=== PATIENT | female | born 1960 | race Caucasian/White ===

== ENCOUNTER 2017-08-25 14:22 | Inpatient (IN) | payer MEDICARE, OTHER ==
[~2017-08-25] VITALS: Ht 175.3 cm; Wt 102.7 kg
[~2017-08-25 14:22] MED LIST: ACEBUTCAFT PO; ALBU90I INH; ALBU90OI INH; ALBU90OI61 INH; AMIT25 PO; ASPI325 PO; Advair Hfa 230-12 GM INH; BENADRYL25 MG; BENZ100A PO; CYCL10 PO; Cyclobenzaprine5 MG PO; DIPH50 PO; FLUSAL1005 INH; FLUSAL2505 INH; Flonase 0.05% N16 GM; GLYCAS PR; HYDACE25S PR; HYDCHL12.5 PO; HYDROCHLOROTHIAZIDE; Hydrochlorothia25 MG PO; LAVAP17G PO; LIDO5TP TOP; LIDO700A20 TOP; LISHYD1012 PO; LISHYD2025 PO; LISI20 PO; LORA.5 PO; Lyrica50 MG PO; MELA3 PO; METPRE4DP PO; Magnesium 300300 MG; Maxalt Mlt10 MG PO; Maxalt10 MG; Maxalt5 MG; Naprosyn500 MG PO; ONDA4ODT PO; OXECTA5 MG PO; Omeprazole20 M1 PO; POTASSIUM GLUC500 MG; PRED20 PO; PROM12.5S PR; PROM25 PO; PSEU120ER PO; Percocet 5-3251 EACH PO; Potaba500 MG; Prednisone20 MG PO; Prilosec20 MG PO; Robaxin500 MG PO; Roxicodone5 MG PO; SUCR1 PO; SULTRIDS PO; TEA TREE TOP; TRAM50 PO; Ultram50 MG PO; Valium5 MG PO; Ventolin Soln3 ML INH; ZESTORETIC 20-121 EA PO; ZESTORETIC 20-251 EA PO; Zithromax250 MG PO; Zofran Odt4 MG SL; [UNRECOGNIZED DRUG - OTHER]; [UNRECOGNIZED DRUG - OTHER]; [UNRECOGNIZED DRUG - OTHER] PO
[2017-08-25 15:10] LABS: BASOPHILS ABSOLUTE AUTO 0.02 K/mm3 (0.00-0.23); BASOPHILS PERCENT AUTO 0 % (0-2); EOSINOPHILS ABSOLUTE AUTO 0.04 K/mm3 (0.00-0.68); EOSINOPHILS PERCENT AUTO 0 % (0-6); Hematocrit 38.2 % (33.0-51.0); Hemoglobin 12.7 g/dL (11.5-16.0); IMMATURE GRAN ABSOLUTE AUTO 0.05 K/mm3 (0.00-0.10); IMMATURE GRAN PERCENT AUTO 0 % (0-1); LYMPHOCYTES ABSOLUTE AUTO 0.52 K/mm3 (0.84-5.20); LYMPHOCYTES PERCENT AUTO 3 % (21-46); MONOCYTES ABSOLUTE AUTO 1.02 K/mm3 (0.16-1.47); MONOCYTES PERCENT AUTO 6 % (4-13); Mean Corpuscular HGB 28.3 pg (26.0-34.0); Mean Corpuscular HGB Conc 33.2 g/dL (31.5-36.5); Mean Corpuscular Volume 85 fL (80-100); NEUTROPHILS ABSOLUTE AUTO 16.77 K/mm3 (1.96-9.15); NEUTROPHILS PERCENT AUTO 91 % (41-73); Platelet Count 260 K/mm3 (150-400); RDW Coefficient Variation 12.7 % (11.7-14.2); RDW Standard Deviation 39.6 fL (35.1-46.3); Red Blood Cell Count 4.49 M/mm3 (3.80-5.20); White Blood Cell Count 18.42 K/mm3 (4.00-11.30)
[2017-08-25 15:29] LABS: Albumin, Blood 3.6 g/dL (3.4-5.0); Albumin/Globulin Ratio 0.9 (0.8-1.8); Bilirubin, Total 0.7 mg/dL (0.1-1.0); Bun/Creatinine Ratio 24.2 (12.0-20.0); Calcium, Blood 9.3 mg/dL (8.5-10.1); Creatinine, Blood 1.2 mg/dL (0.40-1.00); Globulin, Blood 4.1 g/dL (2.2-4.0); Potassium, Blood 3.4 mmol/L (3.5-5.5); Total Protein, Blood 7.7 g/dL (6.4-8.2)
[2017-08-25 15:33] LABS: Source, Urine Clean Catch
[2017-08-25 15:36] LABS: Appearance, Urine Clear (Clear); Bilirubin, Urine Neg (Neg); Blood, Urine Neg (Neg); Color, Urine Yellow (P-Yellow); Glucose Qualitative, Urine Neg (Neg); Ketones, Urine Neg (Neg); Leukocyte Esterase, Urine 1+ (Neg); Nitrite, Urine Neg (Neg); Protein, Urine Neg (Neg); Urobilinogen, Urine NORM (Normal)
[2017-08-25 15:50] LABS: Influenza A Negative (NEGATIVE); Influenza B Negative (NEGATIVE)
[2017-08-25 15:57] LABS: Bacteria Few /hpf; Red Blood Cells, Urine 0-2 /hpf (0-2); Squamous Epithelial Cells Few /hpf (Few)
[2017-08-25] MEDS ORDERED: Flonase 0.05% N16 GM (18:16)
[2017-08-25] MEDS ORDERED: QUDEXY XR100 MG PO (18:19)
[2017-08-25] MEDS ORDERED: OXYC5 PO (18:22)
[2017-08-26 05:35] LABS: BASOPHILS ABSOLUTE AUTO 0.03 K/mm3 (0.00-0.23); BASOPHILS PERCENT AUTO 0 % (0-2); EOSINOPHILS PERCENT AUTO 2 % (0-6); Hematocrit 31.6 % (33.0-51.0); Hemoglobin 10.1 g/dL (11.5-16.0); IMMATURE GRAN ABSOLUTE AUTO 0.03 K/mm3 (0.00-0.10); IMMATURE GRAN PERCENT AUTO 0 % (0-1); LYMPHOCYTES ABSOLUTE AUTO 1.29 K/mm3 (0.84-5.20); LYMPHOCYTES PERCENT AUTO 10 % (21-46); MONOCYTES ABSOLUTE AUTO 0.73 K/mm3 (0.16-1.47); MONOCYTES PERCENT AUTO 6 % (4-13); Mean Corpuscular HGB 27.6 pg (26.0-34.0); Mean Corpuscular Volume 86 fL (80-100); Mean Platelet Volume 8.7 fL (9.1-12.4); NEUTROPHILS ABSOLUTE AUTO 10.52 K/mm3 (1.96-9.15); NEUTROPHILS PERCENT AUTO 82 % (41-73); Platelet Count 195 K/mm3 (150-400); RDW Standard Deviation 41.5 fL (35.1-46.3); Red Blood Cell Count 3.66 M/mm3 (3.80-5.20)
[2017-08-26 06:28] LABS: Bun/Creatinine Ratio 26.8 (12.0-20.0); Calcium, Blood 8.5 mg/dL (8.5-10.1); Creatinine, Blood 1.12 mg/dL (0.40-1.00); Potassium, Blood 3.2 mmol/L (3.5-5.5)
[2017-08-26 14:40] LABS: Vancomycin, Trough 5.3 ug/mL (5.0-10.0)
[2017-08-27 05:07] LABS: BASOPHILS ABSOLUTE AUTO 0.02 K/mm3 (0.00-0.23); BASOPHILS PERCENT AUTO 0 % (0-2); EOSINOPHILS ABSOLUTE AUTO 0.32 K/mm3 (0.00-0.68); EOSINOPHILS PERCENT AUTO 5 % (0-6); Hematocrit 29.7 % (33.0-51.0); Hemoglobin 9.7 g/dL (11.5-16.0); IMMATURE GRAN ABSOLUTE AUTO 0.02 K/mm3 (0.00-0.10); IMMATURE GRAN PERCENT AUTO 0 % (0-1); LYMPHOCYTES ABSOLUTE AUTO 0.96 K/mm3 (0.84-5.20); LYMPHOCYTES PERCENT AUTO 14 % (21-46); MONOCYTES ABSOLUTE AUTO 0.57 K/mm3 (0.16-1.47); MONOCYTES PERCENT AUTO 8 % (4-13); Mean Corpuscular HGB 27.5 pg (26.0-34.0); Mean Corpuscular HGB Conc 32.7 g/dL (31.5-36.5); Mean Corpuscular Volume 84 fL (80-100); Mean Platelet Volume 8.7 fL (9.1-12.4); NEUTROPHILS ABSOLUTE AUTO 5.17 K/mm3 (1.96-9.15); NEUTROPHILS PERCENT AUTO 73 % (41-73); Platelet Count 197 K/mm3 (150-400); RDW Coefficient Variation 12.8 % (11.7-14.2); RDW Standard Deviation 39.1 fL (35.1-46.3); Red Blood Cell Count 3.53 M/mm3 (3.80-5.20); White Blood Cell Count 7.06 K/mm3 (4.00-11.30)
[2017-08-27 05:25] LABS: Anion Gap 8 mmol/L (6-16); Blood Urea Nitrogen 14 mg/dL (8-24); Bun/Creatinine Ratio 17.8 (12.0-20.0); CO2, Blood 25 mmol/L (21-32); Calcium, Blood 8.2 mg/dL (8.5-10.1); Chloride, Blood 104 mmol/L (98-108); Creatinine, Blood 0.79 mg/dL (0.40-1.00); Glomerular Filtration Rate >60 (60-); Glucose, Blood 117 mg/dL (70-99); Potassium, Blood 3.7 mmol/L (3.5-5.5); Sodium, Blood 137 mmol/L (136-145)
[2017-08-28] MEDS ORDERED: DOCU100 PO (09:47)
[2017-08-28] MEDS ORDERED: SACC250C PO (09:49)
[2017-08-28] MEDS ORDERED: CEPH500 PO (09:51)
[2017-08-29] MEDS ORDERED: Prednisone50 MG PO (01:23)
[2017-08-29] MEDS ORDERED: EPIPEN 2-P0.3 MG/0.3 IM (01:23)
[2017-08-29] MEDS ORDERED: BENADRYL25 MG PO (01:23)
[2017-08-29] MEDS ORDERED: Pepcid20 MG PO (01:23)
== END 2017-08-28 13:30 | disposition home or self-care (01) | DRG 862 ==
LOC: ER 14:22 → MEDS 16:30 → ENPENDDIS 08-28 09:10 → MEDS 08-28 13:30
PROVIDERS: Emergency Medicine; Internal Medicine
DX: T81.4XXA Infection following a procedure, initial encounter (principal); A41.9 Sepsis, unspecified organism; J96.01 Acute respiratory failure with hypoxia; L03.116 Cellulitis of left lower limb; J98.11 Atelectasis; K27.9 Peptic ulcer, site unspecified, unspecified as acute or chronic, without hemorrhage or perforation; M19.90 Unspecified osteoarthritis, unspecified site; J45.909 Unspecified asthma, uncomplicated; I12.9 Hypertensive chronic kidney disease with stage 1 through stage 4 chronic kidney disease, or unspecified chronic kidney disease; N18.3 Chronic kidney disease, stage 3 (moderate); K21.9 Gastro-esophageal reflux disease without esophagitis; Z87.891 Personal history of nicotine dependence; Z79.899 Other long term (current) drug therapy; Z88.8 Allergy status to other drugs, medicaments and biological substances; Z91.040 Latex allergy status; Z91.010 Allergy to peanuts
CPT/HCPCS: 36415; 71020; 80048; 80053; 80202; 81001; 83605; 83735; 85025; 87040; 87081; 87086; 87804; 94640; 94760; 96365; 96367; 99285; J0690; J1650; J2405; J3370; J7030; J7050

== ENCOUNTER → 2017-11-06 | Outpatient (CLI) | payer MEDICARE, OTHER ==
[~2017-11-06] MED LIST changes: +BENADRYL25 MG PO; +BUDE10.22 INH; +BUDE6HFA INH; +CEPH500 PO; +DOCU100 PO; +EPIPEN 2-P0.3 MG/0.3 IM; +LIDOCAINE5 GM TOP; +Maxalt10 MG PO; +OXYC5 PO; +Pepcid20 MG PO; +Prednisone50 MG PO; +QUDEXY XR100 MG PO; +SACC250C PO; +Ventolin/Prove6.7 GM INH; +Voltaren100 GM TOP
[2017-11-08 13:33] LABS: HPV Genotype 16 Not Detected (NOTDET); HPV Genotype 18 Not Detected (NOTDET)
[2017-11-26 08:13] LABS: HPV High Risk Other Not Detected (NOTDET)
== END ==
LOC: LAB 11:29
PROVIDERS: Nurse Practitioner Family
DX: Z12.4 Encounter for screening for malignant neoplasm of cervix (principal)
CPT/HCPCS: 87624; G0145

== ENCOUNTER 2018-02-14 17:12 | Emergency (ER) | payer MEDICARE, OTHER ==
[~2018-02-14] VITALS: Ht 175.3 cm; Wt 83.9 kg
[~2018-02-14 17:12] MED LIST changes: -BUDE10.22 INH; -BUDE6HFA INH; -LIDOCAINE5 GM TOP; -Maxalt10 MG PO; -Ventolin/Prove6.7 GM INH; -Voltaren100 GM TOP
[2018-02-14] MEDS ORDERED: BUDE6HFA INH (17:25)
[2018-02-14] MEDS ORDERED: Voltaren100 GM TOP (18:27)
== END 2018-02-14 18:38 | disposition home or self-care (01) ==
LOC: ER 17:12
DX: S83.91XA Sprain of unspecified site of right knee, initial encounter (principal); M17.11 Unilateral primary osteoarthritis, right knee; I10 Essential (primary) hypertension; J45.909 Unspecified asthma, uncomplicated; Z88.6 Allergy status to analgesic agent; Z88.5 Allergy status to narcotic agent; Z91.040 Latex allergy status; Z91.010 Allergy to peanuts; Z79.899 Other long term (current) drug therapy; Z87.891 Personal history of nicotine dependence; W19.XXXA Unspecified fall, initial encounter
CPT/HCPCS: 73564; 99283

== ENCOUNTER 2018-02-21 16:55 | Emergency (ER) | payer OTHER, MEDICARE ==
[~2018-02-21] VITALS: Ht 175.3 cm; Wt 81.7 kg
[~2018-02-21 16:55] MED LIST changes: +BUDE6HFA INH; +Voltaren100 GM TOP
[2018-02-21] MEDS ORDERED: Maxalt10 MG PO (18:34)
[2018-02-21] MEDS ORDERED: ZESTORETIC 20-251 EA PO (18:45)
[2018-02-21] MEDS ORDERED: Omeprazole20 M1 PO (18:45)
[2018-02-21] MEDS ORDERED: BUDE10.22 INH (18:46)
[2018-02-21] MEDS ORDERED: Ventolin/Prove6.7 GM INH (18:46)
[2018-02-21] MEDS ORDERED: OXYC5 PO (18:46)
[2018-02-21] MEDS ORDERED: LIDOCAINE5 GM TOP (19:29)
== END 2018-02-21 19:50 | disposition home or self-care (01) ==
LOC: ER 16:55
DX: M25.561 Pain in right knee (principal); I10 Essential (primary) hypertension; J45.909 Unspecified asthma, uncomplicated; Z88.6 Allergy status to analgesic agent; Z88.5 Allergy status to narcotic agent; Z91.040 Latex allergy status; Z91.010 Allergy to peanuts; Z79.899 Other long term (current) drug therapy; Z87.891 Personal history of nicotine dependence
CPT/HCPCS: 96372; 99283; J1885

== ENCOUNTER 2020-08-05 20:26 | Inpatient (IN) | payer MEDICARE ==
[~2020-08-05] VITALS: Ht 175.3 cm; Wt 98.2 kg
[~2020-08-05 20:26] MED LIST changes: +BUDE10.22 INH; +LIDOCAINE5 GM TOP; +Maxalt10 MG PO; +Ventolin/Prove6.7 GM INH
[2020-08-05 21:09] LABS: BASOPHILS ABSOLUTE AUTO 0.03 K/mm3 (0.00-0.23); BASOPHILS PERCENT AUTO 0 % (0-2); EOSINOPHILS ABSOLUTE AUTO 0.02 K/mm3 (0.00-0.68); EOSINOPHILS PERCENT AUTO 0 % (0-6); Hematocrit 33.7 % (33.0-51.0); Hemoglobin 10.9 g/dL (11.5-16.0); IMMATURE GRAN ABSOLUTE AUTO 0.13 K/mm3 (0.00-0.10); IMMATURE GRAN PERCENT AUTO 1 % (0-1); LYMPHOCYTES ABSOLUTE AUTO 0.67 K/mm3 (0.84-5.20); LYMPHOCYTES PERCENT AUTO 4 % (21-46); MONOCYTES ABSOLUTE AUTO 0.87 K/mm3 (0.16-1.47); MONOCYTES PERCENT AUTO 5 % (4-13); Mean Corpuscular HGB 27.9 pg (26.0-34.0); Mean Corpuscular HGB Conc 32.3 g/dL (31.5-36.5); Mean Corpuscular Volume 86 fL (80-100); Mean Platelet Volume 8.7 fL (9.1-12.4); NEUTROPHILS ABSOLUTE AUTO 14.42 K/mm3 (1.96-9.15); NEUTROPHILS PERCENT AUTO 89 % (41-73); Platelet Count 227 K/mm3 (150-400); RDW Coefficient Variation 12.4 % (11.7-14.2); Red Blood Cell Count 3.91 M/mm3 (3.80-5.20); White Blood Cell Count 16.14 K/mm3 (4.00-11.30)
[2020-08-05 21:27] LABS: Alanine Aminotransfer (ALT/SGP 31 U/L (12-78); Albumin/Globulin Ratio 0.7 (0.8-1.8); Alk Phos 155 U/L (50-136); Anion Gap 7 mmol/L (6-16); Aspartate Aminotrans (AST/SGOT 36 U/L (12-37); Bilirubin, Total 0.4 mg/dL (0.1-1.0); Blood Urea Nitrogen 39 mg/dL (8-24); Bun/Creatinine Ratio 19.1 (12.0-20.0); CO2, Blood 26 mmol/L (21-32); Calcium, Blood 9.1 mg/dL (8.5-10.1); Chloride, Blood 100 mmol/L (98-108); Creatinine, Blood 2.04 mg/dL (0.40-1.00); Globulin, Blood 4.3 g/dL (2.2-4.0); Glomerular Filtration Rate 26 (60-); Glucose, Blood 154 mg/dL (70-99); Potassium, Blood 3.4 mmol/L (3.5-5.5); Sodium, Blood 133 mmol/L (136-145); Total Protein, Blood 7.3 g/dL (6.4-8.2)
[2020-08-06 01:31] LABS: Influenza A, PCR Negative (NEGATIVE); Influenza B, PCR Negative (NEGATIVE); Resp Syncytial Virus, PCR Negative (NEGATIVE); SARS-Cov-2 (COVID-19) PCR, MMC Negative (NEGATIVE)
[2020-08-06 01:33] LABS: Troponin I <0.015 ng/mL (0.000-0.040)
[2020-08-06 01:47] LABS: Source, Urine Voided
[2020-08-06 01:49] LABS: Bilirubin, Urine Neg (Neg); Blood, Urine 5+ (Neg); Glucose Qualitative, Urine Neg (Neg); Ketones, Urine Neg (Neg); Leukocyte Esterase, Urine 2+ (Neg); Nitrite, Urine Neg (Neg); Protein, Urine 2+ (Neg); Specific Gravity, Urine 1.015 (1.003-1.022); Urobilinogen, Urine NORM (Normal)
[2020-08-06 01:52] LABS: Appearance, Urine Hazy (Clear); Color, Urine Yellow (P-Yellow)
[2020-08-06 02:01] LABS: Amorphous Mod (0-Heavy); Bacteria Mod /hpf; Granular Casts 0-2 /lpf (0); Red Blood Cells, Urine TNTC /hpf (0-2); Squamous Epithelial Cells Few /hpf (Few)
[2020-08-06] MEDS ORDERED: Lisinopril-Hct1 EAC4 PO ×2 (05:40)
[2020-08-06] MEDS ORDERED: TOPI15C ×2 (05:45)
[2020-08-06 06:56] LABS: Source, Urine Catheter
[2020-08-06 07:05] LABS: Appearance, Urine Hazy (Clear); Bilirubin, Urine Neg (Neg); Blood, Urine 5+ (Neg); Color, Urine Yellow (P-Yellow); Glucose Qualitative, Urine Neg (Neg); Ketones, Urine Neg (Neg); Leukocyte Esterase, Urine Neg (Neg); Nitrite, Urine Neg (Neg); Protein, Urine 1+ (Neg); Urobilinogen, Urine NORM (Normal)
[2020-08-06 07:22] LABS: Red Blood Cells, Urine 0-2 /hpf (0-2); White Blood Cells, Urine 0-2 /hpf (0-5)
[2020-08-06 07:23] LABS: Amorphous Heavy (0-Heavy); Bacteria Rare /hpf; Squamous Epithelial Cells Few /hpf (Few)
[2020-08-06 08:58] LABS: BASOPHILS ABSOLUTE AUTO 0.04 K/mm3 (0.00-0.23); BASOPHILS PERCENT AUTO 0 % (0-2); EOSINOPHILS ABSOLUTE AUTO 0.17 K/mm3 (0.00-0.68); EOSINOPHILS PERCENT AUTO 2 % (0-6); Hematocrit 29.1 % (33.0-51.0); Hemoglobin 9.5 g/dL (11.5-16.0); IMMATURE GRAN ABSOLUTE AUTO 0.05 K/mm3 (0.00-0.10); IMMATURE GRAN PERCENT AUTO 1 % (0-1); LYMPHOCYTES ABSOLUTE AUTO 1.13 K/mm3 (0.84-5.20); LYMPHOCYTES PERCENT AUTO 11 % (21-46); MONOCYTES ABSOLUTE AUTO 0.77 K/mm3 (0.16-1.47); MONOCYTES PERCENT AUTO 7 % (4-13); Mean Corpuscular HGB 28.4 pg (26.0-34.0); Mean Corpuscular HGB Conc 32.6 g/dL (31.5-36.5); Mean Corpuscular Volume 87 fL (80-100); Mean Platelet Volume 8.8 fL (9.1-12.4); NEUTROPHILS ABSOLUTE AUTO 8.59 K/mm3 (1.96-9.15); NEUTROPHILS PERCENT AUTO 80 % (41-73); Platelet Count 187 K/mm3 (150-400); RDW Coefficient Variation 12.5 % (11.7-14.2); RDW Standard Deviation 39.9 fL (35.1-46.3); Red Blood Cell Count 3.35 M/mm3 (3.80-5.20); White Blood Cell Count 10.75 K/mm3 (4.00-11.30)
[2020-08-06 09:19] LABS: Albumin, Blood 2.7 g/dL (3.4-5.0); Albumin/Globulin Ratio 0.8 (0.8-1.8); Bilirubin, Total 0.4 mg/dL (0.1-1.0); Bun/Creatinine Ratio 20.9 (12.0-20.0); Calcium, Blood 8.7 mg/dL (8.5-10.1); Creatinine, Blood 1.72 mg/dL (0.40-1.00); Globulin, Blood 3.6 g/dL (2.2-4.0); Potassium, Blood 3.3 mmol/L (3.5-5.5); Total Protein, Blood 6.3 g/dL (6.4-8.2)
--- NOTE | 2020-08-06 13:37 | NUR ---
DR OLEARY: DISCUSSED PT STATUS AND DR OLEARY DECIDED PT NEEDED TO BE MEDICAL FLOOR STATUS RATHER THAN PCU. WILL TRANSFER WHEN ROOM AVAILABLE.
--- NOTE | 2020-08-06 16:19 | NUR ---
Patient arrived to room 230. 50mg IV Fentayl given to patient for 9/10 pain. Surgical dressing replaced to lower back. Patient oriented to room. RA. Patient sitting up in bed watching TV. Ice water and call light within patient reach.
[2020-08-07 04:53] LABS: BASOPHILS ABSOLUTE AUTO 0.05 K/mm3 (0.00-0.23); BASOPHILS PERCENT AUTO 1 % (0-2); EOSINOPHILS ABSOLUTE AUTO 0.17 K/mm3 (0.00-0.68); EOSINOPHILS PERCENT AUTO 3 % (0-6); Hematocrit 27.8 % (33.0-51.0); Hemoglobin 8.9 g/dL (11.5-16.0); IMMATURE GRAN ABSOLUTE AUTO 0.03 K/mm3 (0.00-0.10); IMMATURE GRAN PERCENT AUTO 1 % (0-1); LYMPHOCYTES ABSOLUTE AUTO 0.87 K/mm3 (0.84-5.20); LYMPHOCYTES PERCENT AUTO 14 % (21-46); MONOCYTES ABSOLUTE AUTO 0.61 K/mm3 (0.16-1.47); MONOCYTES PERCENT AUTO 10 % (4-13); Mean Corpuscular HGB 27.6 pg (26.0-34.0); Mean Corpuscular Volume 86 fL (80-100); Mean Platelet Volume 8.7 fL (9.1-12.4); NEUTROPHILS PERCENT AUTO 72 % (41-73); Platelet Count 196 K/mm3 (150-400); RDW Coefficient Variation 12.5 % (11.7-14.2); RDW Standard Deviation 39.8 fL (35.1-46.3); Red Blood Cell Count 3.23 M/mm3 (3.80-5.20); White Blood Cell Count 6.23 K/mm3 (4.00-11.30)
[2020-08-07 05:11] LABS: Albumin, Blood 2.3 g/dL (3.4-5.0); Anion Gap 7 mmol/L (6-16); Blood Urea Nitrogen 23 mg/dL (8-24); Bun/Creatinine Ratio 23.8 (12.0-20.0); CO2, Blood 24 mmol/L (21-32); Calcium, Blood 8.4 mg/dL (8.5-10.1); Chloride, Blood 109 mmol/L (98-108); Creatinine, Blood 0.97 mg/dL (0.40-1.00); Glomerular Filtration Rate >60 (60-); Glucose, Blood 96 mg/dL (70-99); Phosphorus, Blood 3.1 mg/dL (2.5-4.9); Potassium, Blood 3.7 mmol/L (3.5-5.5); Sodium, Blood 140 mmol/L (136-145)
--- NOTE | 2020-08-07 06:26 | NUR ---
SHIFT SUMMARY: GLADYS IS A&OX4. VSS. SHE DEMONSTRATED SNORING RESPIRATIONS WITH OCCASIONAL OBSTRUCTIONS AND A SPOT CHECK REVEALED O2 SATURATION OF 83% ORA. 2 L VIA NC WAS APPLIED AND HER SATS MAINTAINED AT 92% OR ABOVE. SHE STATES THAT SHE FREQUENTLY SNORES DURING SLEEP AND DENIED HAVING HAD A SLEEP STUDY. SHE WAS ENCOURAGED TO FOLLOWUP WITH HER DOCTOR CONCERNING THIS ISSUE. WHILE AWAKE, HER SATURATIONS ARE MAINTAINING AT OR ABOVE 92% ORA. SHE IS TOLERATING PO INTAKE WELL. SHE USES HER CALL LIGHT APPROPRIATELY. SHE IS A STANDBY ASSIST. SHE IS LYING IN BED WITH HER CALL LIGHT IN REACH. WILL REPORT TO DAY SHIFT RN.
[2020-08-07] MEDS ORDERED: Athenol325 MG PO ×2 (14:00)
[2020-08-07] MEDS ORDERED: AZIT500 PO ×2 (14:01)
[2020-08-07] MEDS ORDERED: DOCU100 PO ×2 (14:01)
[2020-08-07] MEDS ORDERED: ROXICODONE5 MG PO ×2 (14:02)
[2020-08-07] MEDS ORDERED: SENN187 PO ×2 (14:02)
[2020-08-08] MEDS ORDERED: CEFPODOXIME PR100 MG PO (00:06)
== END 2020-08-07 16:57 | disposition home or self-care (01) | DRG 871 ==
LOC: ER 20:26 → ERHOLD 20:27 → ICUE 20:27 → SURS 08-06 15:45
PROVIDERS: Emergency Medicine; Internal Medicine; Physician Assistant; ADMIT Internal Medicine
DX: A41.9 Sepsis, unspecified organism (principal); J18.9 Pneumonia, unspecified organism; N17.9 Acute kidney failure, unspecified; E87.1 Hypo-osmolality and hyponatremia; E86.0 Dehydration; N18.30 Chronic kidney disease, stage 3 unspecified; E87.6 Hypokalemia; K59.00 Constipation, unspecified; Z20.828 Contact with and (suspected) exposure to other viral communicable diseases; R09.02 Hypoxemia; R31.9 Hematuria, unspecified
CPT/HCPCS: 0241U; 36415; 51702; 71045; 74176; 80053; 80069; 81001; 83605; 83690; 83880; 84484; 85025; 87040; 87086; 93005; 93010; 94640; 94760; 96365; 96367; 96372; 96375; 96376; 99285-25; C9113; G0378; J0696; J1200; J1650; J2405; J2765; J3010; J3370; J3480; J7030

== ENCOUNTER 2020-08-07 22:55 | Emergency (ER) | payer MEDICARE ==
[~2020-08-07] VITALS: Ht 175.3 cm; Wt 93.0 kg
[~2020-08-07 22:55] MED LIST changes: +AZIT500 PO; +Athenol325 MG PO; +Lisinopril-Hct1 EAC4 PO; +ROXICODONE5 MG PO; +SENN187 PO; +TOPI15C
[2020-08-07 23:33] LABS: Source, Urine Catheter
[2020-08-07 23:47] LABS: Bilirubin, Urine Neg (Neg); Blood, Urine 5+ (Neg); Glucose Qualitative, Urine Neg (Neg); Ketones, Urine Neg (Neg); Leukocyte Esterase, Urine 2+ (Neg); Nitrite, Urine Neg (Neg); Protein, Urine 2+ (Neg); Urobilinogen, Urine NORM (Normal)
[2020-08-07 23:56] LABS: Appearance, Urine Hazy (Clear); Color, Urine Yellow (P-Yellow)
[2020-08-07 23:57] LABS: Bacteria Few /hpf; Red Blood Cells, Urine TNTC /hpf (0-2); Squamous Epithelial Cells Not Seen /hpf (Few)
[2020-08-08] MEDS ORDERED: CEFPODOXIME PR100 MG PO (00:06)
== END 2020-08-08 00:18 | disposition home or self-care (01) ==
LOC: ER 22:55
PROVIDERS: Emergency Medicine
DX: T83.511A Infection and inflammatory reaction due to indwelling urethral catheter, initial encounter (principal); I10 Essential (primary) hypertension; J45.909 Unspecified asthma, uncomplicated; Z79.51 Long term (current) use of inhaled steroids; Z88.6 Allergy status to analgesic agent; Z88.2 Allergy status to sulfonamides; Z91.040 Latex allergy status; Z91.010 Allergy to peanuts; Z79.899 Other long term (current) drug therapy
CPT/HCPCS: 81001; 87086; 99283; A9270-GY

== ENCOUNTER → 2020-08-11 | Outpatient (CLI) | payer MEDICARE, OTHER ==
[~2020-08-11] MED LIST changes: +CEFPODOXIME PR100 MG PO
[2020-08-11 19:15] LABS: BASOPHILS ABSOLUTE AUTO 0.06 K/mm3 (0.00-0.23); BASOPHILS PERCENT AUTO 1 % (0-2); EOSINOPHILS ABSOLUTE AUTO 0.24 K/mm3 (0.00-0.68); EOSINOPHILS PERCENT AUTO 3 % (0-6); Hematocrit 29.2 % (33.0-51.0); Hemoglobin 9.5 g/dL (11.5-16.0); IMMATURE GRAN ABSOLUTE AUTO 0.12 K/mm3 (0.00-0.10); IMMATURE GRAN PERCENT AUTO 2 % (0-1); LYMPHOCYTES PERCENT AUTO 15 % (21-46); MONOCYTES ABSOLUTE AUTO 0.78 K/mm3 (0.16-1.47); MONOCYTES PERCENT AUTO 11 % (4-13); Mean Corpuscular HGB 27.5 pg (26.0-34.0); Mean Corpuscular HGB Conc 32.5 g/dL (31.5-36.5); Mean Corpuscular Volume 85 fL (80-100); NEUTROPHILS ABSOLUTE AUTO 5.06 K/mm3 (1.96-9.15); NEUTROPHILS PERCENT AUTO 69 % (41-73); Platelet Count 337 K/mm3 (150-400); RDW Coefficient Variation 12.2 % (11.7-14.2); RDW Standard Deviation 37.8 fL (35.1-46.3); Red Blood Cell Count 3.45 M/mm3 (3.80-5.20); White Blood Cell Count 7.36 K/mm3 (4.00-11.30)
[2020-08-11 19:35] LABS: Alanine Aminotransfer (ALT/SGP 39 U/L (12-78); Albumin/Globulin Ratio 0.7 (0.8-1.8); Alk Phos 107 U/L (50-136); Anion Gap 8 mmol/L (6-16); Aspartate Aminotrans (AST/SGOT 33 U/L (12-37); Bilirubin, Total 0.2 mg/dL (0.1-1.0); Blood Urea Nitrogen 21 mg/dL (8-24); Bun/Creatinine Ratio 21.4 (12.0-20.0); CO2, Blood 24 mmol/L (21-32); Calcium, Blood 9.5 mg/dL (8.5-10.1); Chloride, Blood 103 mmol/L (98-108); Creatinine, Blood 0.98 mg/dL (0.40-1.00); Globulin, Blood 4.3 g/dL (2.2-4.0); Glomerular Filtration Rate >60 (60-); Glucose, Blood 100 mg/dL (70-99); Potassium, Blood 3.8 mmol/L (3.5-5.5); Sodium, Blood 135 mmol/L (136-145); Total Protein, Blood 7.3 g/dL (6.4-8.2)
== END | disposition home or self-care (01) ==
LOC: LAB 17:30
PROVIDERS: Nurse Practitioner Family
DX: R60.0 Localized edema (principal)
CPT/HCPCS: 80053; 85025; 87086

== ENCOUNTER 2020-08-14 14:18 | Emergency (ER) | payer MEDICARE ==
[~2020-08-14] VITALS: Ht 175.3 cm; Wt 93.0 kg
[2020-08-14 14:52] LABS: BASOPHILS ABSOLUTE AUTO 0.07 K/mm3 (0.00-0.23); BASOPHILS PERCENT AUTO 1 % (0-2); EOSINOPHILS ABSOLUTE AUTO 0.16 K/mm3 (0.00-0.68); EOSINOPHILS PERCENT AUTO 2 % (0-6); Hematocrit 34.9 % (33.0-51.0); IMMATURE GRAN ABSOLUTE AUTO 0.12 K/mm3 (0.00-0.10); IMMATURE GRAN PERCENT AUTO 2 % (0-1); LYMPHOCYTES ABSOLUTE AUTO 1.14 K/mm3 (0.84-5.20); LYMPHOCYTES PERCENT AUTO 17 % (21-46); MONOCYTES ABSOLUTE AUTO 0.56 K/mm3 (0.16-1.47); MONOCYTES PERCENT AUTO 8 % (4-13); Mean Corpuscular HGB 27.6 pg (26.0-34.0); Mean Corpuscular HGB Conc 31.5 g/dL (31.5-36.5); Mean Corpuscular Volume 88 fL (80-100); Mean Platelet Volume 8.2 fL (9.1-12.4); NEUTROPHILS ABSOLUTE AUTO 4.87 K/mm3 (1.96-9.15); NEUTROPHILS PERCENT AUTO 70 % (41-73); Platelet Count 359 K/mm3 (150-400); RDW Coefficient Variation 12.3 % (11.7-14.2); RDW Standard Deviation 39.9 fL (35.1-46.3); Red Blood Cell Count 3.98 M/mm3 (3.80-5.20); White Blood Cell Count 6.92 K/mm3 (4.00-11.30)
[2020-08-14 15:16] LABS: Alanine Aminotransfer (ALT/SGP 33 U/L (12-78); Albumin, Blood 3.1 g/dL (3.4-5.0); Albumin/Globulin Ratio 0.7 (0.8-1.8); Alk Phos 104 U/L (50-136); Anion Gap 8 mmol/L (6-16); Aspartate Aminotrans (AST/SGOT 26 U/L (12-37); Bilirubin, Total 0.1 mg/dL (0.1-1.0); Blood Urea Nitrogen 17 mg/dL (8-24); Bun/Creatinine Ratio 17.5 (12.0-20.0); CO2, Blood 25 mmol/L (21-32); Calcium, Blood 9.8 mg/dL (8.5-10.1); Chloride, Blood 106 mmol/L (98-108); Creatinine, Blood 0.97 mg/dL (0.40-1.00); Globulin, Blood 4.6 g/dL (2.2-4.0); Glomerular Filtration Rate >60 (60-); Glucose, Blood 124 mg/dL (70-99); Potassium, Blood 3.9 mmol/L (3.5-5.5); Sodium, Blood 139 mmol/L (136-145); Total Protein, Blood 7.7 g/dL (6.4-8.2)
[2020-08-14 16:52] LABS: Source, Urine Catheter
[2020-08-14 16:56] LABS: Appearance, Urine Clear (Clear); Bilirubin, Urine Neg (Neg); Blood, Urine 5+ (Neg); Color, Urine Yellow (P-Yellow); Glucose Qualitative, Urine Neg (Neg); Ketones, Urine Neg (Neg); Leukocyte Esterase, Urine Neg (Neg); Nitrite, Urine Neg (Neg); Protein, Urine Neg (Neg); Specific Gravity, Urine 1.005 (1.003-1.022); Urobilinogen, Urine NORM (Normal)
[2020-08-14 17:04] LABS: Bacteria Rare /hpf; Red Blood Cells, Urine 50-100 /hpf (0-2); Squamous Epithelial Cells Rare /hpf (Few); White Blood Cells, Urine Not Seen /hpf (0-5)
== END 2020-08-14 18:28 | disposition home or self-care (01) ==
LOC: ER 14:18
PROVIDERS: Physician Assistant
DX: T83.83XA Hemorrhage due to genitourinary prosthetic devices, implants and grafts, initial encounter (principal); Z79.51 Long term (current) use of inhaled steroids; Z79.899 Other long term (current) drug therapy
CPT/HCPCS: 36415; 80053; 81001; 85025; 99283-25

== ENCOUNTER 2021-08-31 17:26 | Emergency (ER) | payer MEDICARE ==
[~2021-08-31] VITALS: Ht 175.3 cm; Wt 93.0 kg
[2021-08-31 19:07] LABS: BASOPHILS ABSOLUTE AUTO 0.01 K/mm3 (0.00-0.23); BASOPHILS PERCENT AUTO 0 % (0-2); EOSINOPHILS PERCENT AUTO 0 % (0-6); Hematocrit 39.1 % (33.0-51.0); Hemoglobin 12.9 g/dL (11.5-16.0); IMMATURE GRAN ABSOLUTE AUTO 0.01 K/mm3 (0.00-0.10); IMMATURE GRAN PERCENT AUTO 0 % (0-1); LYMPHOCYTES ABSOLUTE AUTO 0.44 K/mm3 (0.84-5.20); LYMPHOCYTES PERCENT AUTO 14 % (21-46); MONOCYTES ABSOLUTE AUTO 0.25 K/mm3 (0.16-1.47); MONOCYTES PERCENT AUTO 8 % (4-13); Mean Corpuscular HGB 27.6 pg (26.0-34.0); Mean Corpuscular Volume 84 fL (80-100); Mean Platelet Volume 9.6 fL (9.1-12.4); NEUTROPHILS ABSOLUTE AUTO 2.53 K/mm3 (1.96-9.15); NEUTROPHILS PERCENT AUTO 78 % (41-73); Platelet Count 136 K/mm3 (150-400); RDW Coefficient Variation 13.1 % (11.7-14.2); Red Blood Cell Count 4.67 M/mm3 (3.80-5.20); White Blood Cell Count 3.24 K/mm3 (4.00-11.30)
[2021-08-31 19:32] LABS: Alanine Aminotransfer (ALT/SGP 111 U/L (12-78); Albumin/Globulin Ratio 0.8 (0.8-1.8); Alk Phos 141 U/L (50-136); Anion Gap 9 mmol/L (6-16); Aspartate Aminotrans (AST/SGOT 142 U/L (12-37); Bilirubin, Total 0.4 mg/dL (0.1-1.0); Blood Urea Nitrogen 20 mg/dL (8-24); Bun/Creatinine Ratio 19.8 (12.0-20.0); CO2, Blood 26 mmol/L (21-32); Calcium, Blood 8.3 mg/dL (8.5-10.1); Chloride, Blood 99 mmol/L (98-108); Creatinine, Blood 1.01 mg/dL (0.40-1.00); Glomerular Filtration Rate 56 (60-); Glucose, Blood 148 mg/dL (70-99); Potassium, Blood 2.6 mmol/L (3.5-5.5); Sodium, Blood 134 mmol/L (136-145); Troponin I <0.015 ng/mL (0.000-0.040)
[2021-08-31] MEDS ORDERED: TOPI50 PO (20:06)
[2021-08-31] MEDS ORDERED: LISINOPRIL-HCT1 EAC1 PO (20:06)
[2021-08-31] MEDS ORDERED: SYMBICORT 80-10.2 GM IH (20:08)
[2021-08-31 22:02] LABS: Influenza A, PCR NEGATIVE (NEGATIVE); Influenza B, PCR NEGATIVE (NEGATIVE); Resp Syncytial Virus, PCR NEGATIVE (NEGATIVE)
[2021-08-31 22:49] LABS: SARS-Cov-2 (COVID-19) PCR, MMC POSITIVE (NEGATIVE)
[2021-08-31] MEDS ORDERED: ONDA4ODT SL (23:24)
[2021-08-31] MEDS ORDERED: KLOR-CON 1010 ME5 PO (23:24)
== END 2021-09-01 01:32 | disposition home or self-care (01) ==
LOC: ER 17:26
PROVIDERS: Emergency Medicine; Student in an Organized Health Care Education/Training Program
DX: U07.1 COVID-19 (principal); J12.82 Pneumonia due to coronavirus disease 2019; I10 Essential (primary) hypertension; J45.909 Unspecified asthma, uncomplicated; G43.909 Migraine, unspecified, not intractable, without status migrainosus; Z88.6 Allergy status to analgesic agent; Z91.040 Latex allergy status; Z91.010 Allergy to peanuts; Z79.899 Other long term (current) drug therapy
CPT/HCPCS: 0241U; 36415; 71045; 71260; 74177; 80053; 84484; 85025; 93005; 93010; 96365-59; 96366-59; 99284-25; A9270; J3480; Q9967

== ENCOUNTER 2021-09-02 09:57 | Inpatient (IN) | payer MEDICARE ==
[~2021-09-02] VITALS: Ht 175.3 cm; Wt 112.9 kg
[~2021-09-02 09:57] MED LIST changes: +KLOR-CON 1010 ME5 PO; +LISINOPRIL-HCT1 EAC1 PO; +ONDA4ODT SL; +SYMBICORT 80-10.2 GM IH; +TOPI50 PO
[2021-09-02 10:34] LABS: BASOPHILS ABSOLUTE AUTO 0.01 K/mm3 (0.00-0.23); BASOPHILS PERCENT AUTO 0 % (0-2); EOSINOPHILS PERCENT AUTO 0 % (0-6); Hematocrit 37.2 % (33.0-51.0); Hemoglobin 12.3 g/dL (11.5-16.0); Mean Corpuscular HGB 27.2 pg (26.0-34.0); Mean Corpuscular HGB Conc 33.1 g/dL (31.5-36.5); Mean Corpuscular Volume 82 fL (80-100); Mean Platelet Volume 9.4 fL (9.1-12.4); Platelet Count 134 K/mm3 (150-400); RDW Coefficient Variation 12.7 % (11.7-14.2); RDW Standard Deviation 38.6 fL (35.1-46.3); Red Blood Cell Count 4.53 M/mm3 (3.80-5.20); White Blood Cell Count 3.73 K/mm3 (4.00-11.30)
[2021-09-02 10:35] LABS: IMMATURE GRAN ABSOLUTE AUTO 0.04 K/mm3 (0.00-0.10); IMMATURE GRAN PERCENT AUTO 1 % (0-1); LYMPHOCYTES PERCENT AUTO 13 % (21-46); MONOCYTES ABSOLUTE AUTO 0.23 K/mm3 (0.16-1.47); MONOCYTES PERCENT AUTO 6 % (4-13); NEUTROPHILS ABSOLUTE AUTO 2.95 K/mm3 (1.96-9.15); NEUTROPHILS PERCENT AUTO 79 % (41-73)
[2021-09-02 10:46] LABS: Albumin, Blood 2.5 g/dL (3.4-5.0); Albumin/Globulin Ratio 0.6 (0.8-1.8); Bilirubin, Total 0.3 mg/dL (0.1-1.0); Bun/Creatinine Ratio 15.6 (12.0-20.0); Calcium, Blood 8.7 mg/dL (8.5-10.1); Creatinine, Blood 0.96 mg/dL (0.40-1.00); Globulin, Blood 4.5 g/dL (2.2-4.0); Troponin I 0.019 ng/mL (0.000-0.040)
[2021-09-03 05:21] LABS: BASOPHILS PERCENT AUTO 0 % (0-2); EOSINOPHILS PERCENT AUTO 0 % (0-6); Hematocrit 35.8 % (33.0-51.0); IMMATURE GRAN ABSOLUTE AUTO 0.05 K/mm3 (0.00-0.10); IMMATURE GRAN PERCENT AUTO 1 % (0-1); LYMPHOCYTES ABSOLUTE AUTO 0.38 K/mm3 (0.84-5.20); LYMPHOCYTES PERCENT AUTO 10 % (21-46); MONOCYTES ABSOLUTE AUTO 0.29 K/mm3 (0.16-1.47); MONOCYTES PERCENT AUTO 8 % (4-13); Mean Corpuscular HGB 27.7 pg (26.0-34.0); Mean Corpuscular HGB Conc 33.5 g/dL (31.5-36.5); Mean Corpuscular Volume 83 fL (80-100); Mean Platelet Volume 9.6 fL (9.1-12.4); NEUTROPHILS ABSOLUTE AUTO 2.97 K/mm3 (1.96-9.15); NEUTROPHILS PERCENT AUTO 80 % (41-73); Platelet Count 145 K/mm3 (150-400); RDW Standard Deviation 39.4 fL (35.1-46.3); Red Blood Cell Count 4.33 M/mm3 (3.80-5.20); White Blood Cell Count 3.69 K/mm3 (4.00-11.30)
[2021-09-03 06:20] LABS: Alanine Aminotransfer (ALT/SGP 97 U/L (12-78); Albumin, Blood 2.2 g/dL (3.4-5.0); Albumin/Globulin Ratio 0.6 (0.8-1.8); Alk Phos 111 U/L (50-136); Anion Gap 7 mmol/L (6-16); Aspartate Aminotrans (AST/SGOT 116 U/L (12-37); Bilirubin, Total 0.3 mg/dL (0.1-1.0); Blood Urea Nitrogen 17 mg/dL (8-24); Bun/Creatinine Ratio 21.2 (12.0-20.0); CO2, Blood 24 mmol/L (21-32); Calcium, Blood 8.3 mg/dL (8.5-10.1); Chloride, Blood 110 mmol/L (98-108); Globulin, Blood 3.7 g/dL (2.2-4.0); Glomerular Filtration Rate >60 (60-); Glucose, Blood 145 mg/dL (70-99); Magnesium, Blood 2.2 mg/dL (1.6-2.4); Potassium, Blood 4.2 mmol/L (3.5-5.5); Sodium, Blood 141 mmol/L (136-145); Total Protein, Blood 5.9 g/dL (6.4-8.2)
--- NOTE | 2021-09-03 07:37 | NUR ---
SHIFT SUMMARY ASSUMED CARE AT 1900. PT WAS A NEW ADMISSION WHO ARRIVED SHORTLY BEFORE SHIFT CHANGE. ON AIRBORNE PRECAUTION DUE TO +COVID. AAOX4, ON 15LPM VIA OXIMIZER WITH CONTINUOUS PULSE OXIMETRY, SATS ABOUT 90-93% BUT BECOMES HYPOXIC WITH ANY ACTIVITY. IV SITE BENIGN, IV FLUIDS INFUSING ORDERED. PT UP AD JESSICA TO BSC, AWARE THAT A STOOL SPECIMEN IS NEEDED. INTERMITTENT NONPRODUCTIVE COUGH NOTED. BED IS IN LOW POSITION WITH THE CALL LIGHT WITHIN EASY REACH.
[2021-09-03 15:16] LABS: Source, Urine Clean Catch
[2021-09-03 15:19] LABS: Appearance, Urine Hazy (Clear); Bilirubin, Urine Neg (Neg); Blood, Urine 4+ (Neg); Color, Urine Yellow (P-Yellow); Glucose Qualitative, Urine Neg (Neg); Ketones, Urine Neg (Neg); Leukocyte Esterase, Urine 2+ (Neg); Nitrite, Urine Neg (Neg); Protein, Urine 3+ (Neg); Urobilinogen, Urine NORM (Normal)
[2021-09-03 15:28] LABS: Amorphous Light (0-Heavy); Red Blood Cells, Urine Rare /hpf (0-2)
[2021-09-03 15:29] LABS: Bacteria Many /hpf; Squamous Epithelial Cells Few /hpf (Few)
[2021-09-03 17:29] LABS: Campylobacter Sp Not Detected (NOT DETECT)
[2021-09-03 17:30] LABS: Adenovirus F 40/41 Not Detected (NOT DETECT); Astrovirus Not Detected (NOT DETECT); Cryptosporidium Not Detected (NOT DETECT); Cyclospora Cayetanensis Not Detected (NOT DETECT); E. Coli O157 Not Detected (NOT DETECT); Entamoeba Histolytica Not Detected (NOT DETECT); Enteroaggregative E. coli-EAEC Not Detected (NOT DETECT); Enteropathogenic E. coli-EPEC Not Detected (NOT DETECT); Enterotoxigenic E. coli-ETEC Not Detected (NOT DETECT); Giardia Lamblia Not Detected (NOT DETECT); Norovirus GI/GII Not Detected (NOT DETECT); Plesiomonas Shigelloides Not Detected (NOT DETECT); Rotavirus A Not Detected (NOT DETECT); Salmonella Sp Not Detected (NOT DETECT); Sapovirus Not Detected (NOT DETECT); Shiga Toxin-prod E. coli-STEC Not Detected (NOT DETECT); Shigella/Enteroin E. coli-EIEC Not Detected (NOT DETECT); Vibrio Cholerae Not Detected (NOT DETECT); Vibrio Sp Not Detected (NOT DETECT); Yersinia Enterocolitica Not Detected (NOT DETECT)
--- NOTE | 2021-09-03 19:34 | NUR ---
SHIFT SUMMARY: PT O2 NEEDS INCREASED TO AIRVO 60/75. PT REMAINS A/O IND IN ROOM. URINE SAMPLE COLLECTED AND IS BEING CX. STOOL SAMPLE NEGATIVE. PT C/O LARA TODAY THAT DESCRIBED SHARP AND STABBING BEHIND LEFT EYE. NEURO CHECKS WERE NORMAL. WAS NOTIFIED WHEN TYLENOL WAS EFFECTIVE BUT DID NOT FULLY TAKE PAIN AWAY. TRAMADOL WAS ORDERED AND EFFECTIVE IN TREATING PAIN WITH ALT WITH TYLENOL. O2 SATS ON AIRVO WERE 93-97% AND DID NOT DROP WHEN UP TO BSC.
--- NOTE | 2021-09-04 05:15 | NUR ---
SHIFT SUMMARY PT HAS RESTED MOST OF THE NIGHT. PT STILL BECOMES VERY SOB WITH EXERTION. PT ON AIRVO 60L/80% FOR MOST OF THE NIGHT, AND HAD BEEN ON THESE SETTINGS DURING THE DAY AND MAINTAINED HER SATS IN THE MID 90'S. AROUND 0400 PT BEGAN DESATING IN THE LOW TO MID 80'S AND EVEN TOUCHED DOWN IN THE 70'S BRIEFLY. PT WAS SITTING UP IN BED WITH DYSPNEA. RT CALLED TO EVALUATE AND THEY INCREASED HER TO 60L/90%. PT RECOVERED QUICKLY AND AGAIN IS SATING IN THE THE MID TO 90'S. PT WITH SOME N/V THIS SHIFT AND PAIN. MEDICATED PER EMAR. PT HAS BEEN INDEPENDENT TO THE BSC. CALLS AND MAKES NEEDS KNOWN. BED IN LOWEST POSITION, CALL LIGHT WITHIN REACH.
[2021-09-04 05:33] LABS: Hematocrit 37.6 % (33.0-51.0); Hemoglobin 12.6 g/dL (11.5-16.0); Mean Corpuscular HGB 27.4 pg (26.0-34.0); Mean Corpuscular HGB Conc 33.5 g/dL (31.5-36.5); Mean Corpuscular Volume 82 fL (80-100); Mean Platelet Volume 9.6 fL (9.1-12.4); Platelet Count 177 K/mm3 (150-400); RDW Coefficient Variation 13.2 % (11.7-14.2); RDW Standard Deviation 39.5 fL (35.1-46.3); White Blood Cell Count 12.46 K/mm3 (4.00-11.30)
[2021-09-04 05:46] LABS: Ferritin, Serum 1188 ng/mL (8-252)
[2021-09-04 05:47] LABS: Alanine Aminotransfer (ALT/SGP 147 U/L (12-78); Albumin/Globulin Ratio 0.5 (0.8-1.8); Alk Phos 122 U/L (50-136); Anion Gap 9 mmol/L (6-16); Aspartate Aminotrans (AST/SGOT 146 U/L (12-37); Bilirubin, Total 0.3 mg/dL (0.1-1.0); Blood Urea Nitrogen 16 mg/dL (8-24); Bun/Creatinine Ratio 22.2 (12.0-20.0); CO2, Blood 21 mmol/L (21-32); Calcium, Blood 8.5 mg/dL (8.5-10.1); Chloride, Blood 110 mmol/L (98-108); Creatinine, Blood 0.72 mg/dL (0.40-1.00); Globulin, Blood 4.4 g/dL (2.2-4.0); Glomerular Filtration Rate >60 (60-); Glucose, Blood 124 mg/dL (70-99); Potassium, Blood 4.5 mmol/L (3.5-5.5); Sodium, Blood 140 mmol/L (136-145); Total Protein, Blood 6.4 g/dL (6.4-8.2)
--- NOTE | 2021-09-04 08:32 | NUR ---
Assumed care for this patient at 0645. Pt A&Ox4, on Airblow at 60L. FIO2 noted to be fluctuating between 90-86% and SOB at rest. Around 0700 pt noted to be staying more in the 86-87% FIO2. Pt noted to be SOB at rest as well. SOB. L/S with cracles. Charge nurse and covering MD made aware, mentioning to MD pt is appropriate for a transfer to a higher level of care for monitoring. MD put in order for PCU transfer. Report given to nurse Liu in PCU. Pt is transferrred to PCU at approximately 0820. Martin Paulino is called and made aware.
--- NOTE | 2021-09-04 09:00 | NUR ---
INITIAL ASSESSMENT PATIENT ARRIVED TO UNIT AROUND 0830 FROM MEDICAL FLOOR, ROOM 327. PATIENT ALERT AND ORIENTED X 4. TEMP OF 99.1 DEGREES FAHRENHEIT. PATIENT ANXIOUS AT TIMES. PATIENT STATED SHE HAS BEEN [place] SINCE GETTING COVID. PATIENT COMPLAINS OF CHRONIC BACK PAIN AND THAT HER "EYES HURT". PATIENT DOES NOT REQUEST PAIN MEDS AT THIS TIME. PATIENT REPOSITIONED AND LIGHTS TURNED DOWN. PATIENT ON AIRVO AT 60 L AND 100% FIO2. LUNGS DIMINISHED THROUGHOUT. CRACKLES NOTED IN LOWER LUNG LOBES. RR 20S TO 40S. PATIENT HAS STRONG, PRODUCTIVE COUGH. PATIENT IN SR, HR IN THE 80S. SBP 1-TEENS TO 130S. PATIENT GIVEN PRN ZOFRAN FOR COMPLAINT OF NAUSEA. LAST BM NOTED 2 DAYS AGO. APPEARS WNL. NS KCL 20 MEQ INFUSING AT 100 MLS/ HOUR. PATIENT ORIENTED TO UNIT, ROOM AND CALL LIGHT. BED LOW, CALL LIGHT IN REACH. WILL CONTINUE TO MONITOR PATIENT FREQUENTLY THROUGHOUT SHIFT.
[2021-09-04 09:59] LABS: Source, Urine Catheter
--- NOTE | 2021-09-04 10:07 | NUR ---
NURSE TRIED TO CALL PATIENT'S FRIEND, WILLY, AT [phone] TO UPDATE ON CONDITION AND THAT PATIENT CHANGED TO PCU STATUS. MESSAGE LEFT TO CALL NURSE BACK FOR UPDATE.
[2021-09-04 11:32] LABS: Appearance, Urine Clear (Clear); Bilirubin, Urine Neg (Neg); Blood, Urine 5+ (Neg); Color, Urine Yellow (P-Yellow); Glucose Qualitative, Urine Neg (Neg); Ketones, Urine 1+ (Neg); Leukocyte Esterase, Urine 2+ (Neg); Nitrite, Urine Neg (Neg); Protein, Urine 4+ (Neg); Specific Gravity, Urine 1.015 (1.003-1.022); Urobilinogen, Urine NORM (Normal)
[2021-09-04 11:59] LABS: Amorphous Light (0-Heavy); Bacteria Few /hpf; Mucus Light (0-Heavy); RBC Cast Rare /lpf (0); Squamous Epithelial Cells Few /hpf (Few)
--- NOTE | 2021-09-04 12:40 | NUR ---
PATIENT AFEBRILE. HR 90S TO LOW 100S. SBP LOW 100S TO 130S. RR 30S TO 40S. AIRVO SETTINGS REMAIN UNCHANGED. VIRI PLACED THIS AM. NO OTHER ACUTE CHANGES TO NOTE ON AT THIS TIME. WILL CONTINUE TO MONITOR.
--- NOTE | 2021-09-04 16:00 | NUR ---
PATIENT AFEBRILE. HR IN THE 60S. SBP IN THE 1-TEENS. RR 20S TO 30S. PATIENT REMAINS ON AIRVO 60 L AND 100% FIO2. PATIENT SATTING LOW 80S TO MID 90S. NO OTHER ACUTE CHANGES TO NOTE ON AT THIS TIME. NO COMPLAINTS. WILL CONTINUE TO MONITOR.
--- NOTE | 2021-09-04 17:58 | NUR ---
SHIFT SUMMARY PATIENT REMAINED ALERT AND ORIENTED X 4. PATIENT ANXIOUS AT TIMES AFTER ARRIVING. PATIENT HAS BEEN LESS ANXIOUS SINCE NAUSEA SUBSIDED AND SINCE SHE RECEIVED PRN ATIVAN. PATIENT HAD HIGH TEMP OF 99.1 DEGREES FAHRENHEIT THIS SHIFT. PATIENT GIVEN PRN TYLENOL AND TRAMADOL FOR COMPLAINT OF "EYES HURTING"; PATIENT STATED THAT SHE HAD SHARP STABBING PAIN BEHIND EYES. PATIENT REPORTED RELIEF WITH PRN PAIN MEDS. PATIENT REMAINED WEAK BUT ABLE TO ASSIST WITH REPOSITIONING. PATIENT REMAINED ON AIRVO AT 60 L AND 100% FIO2. PATIENT DECREASED TO 90% FIO2 BRIEFLY BUT DESATTED TO LOW 80S. RR 20S TO 40S. PATIENT SOB WITH EXERTION. PATIENT SR TO ST, HR 60S TO LOW 100S. SBP LOW 100S TO 130S. PATIENT GIVEN PRN ZOFRAN X 2 THIS SHIFT FOR NAUSEA. ABD US PERFORMED THIS SHIFT AND WHAT NEGATIVE FOR ANY ACUTE PROCESSES. PATIENT REMAINED NPO BUT DID RECEIVE WATER SWABS. SILICONE MEREDITH DRAINED 1340 MLS OF YELLOW COLORED URINE. SKIN REMAINS UNCHANGED. NS KCL OF 20 MEQ REMAINS INFUSING AT 100 MLS/ HOUR. PATIENT HAD COMPLETE BED BATH THIS SHIFT. PATIENT HAS NO COMPLAINTS AT THIS TIME. BED LOW, CALL LIGHT IN REACH. REPORT WILL BE GIVEN TO [facility] HELPER NURSE SHORTLY.
--- NOTE | 2021-09-04 21:21 | NUR ---
CARE ASSUMPTION PT A&OX4. ABLE TO MAKE NEEDS KNOWN. SP02>86% ON AIRVO, 60L 100% FI02. HARSH PRODUCTIVE COUGH NOTED. PT LAYING ON BACK. PT ENCOURAGED TO LAY ON SIDE OR PRONE. PT REFUSED UPON CARE ASSUMPTION. PT NSR, HR 80'S. PT HAS MEREDITH CATHETER DRAINING YELLOW URINE TO GRAVITY. PT C/O OF 8/10 PAIN BEHIND R EYE. MEDICATED WITH TYLENOL PER EMAR. KCL INFUSING PER EMAR. CALL LIGHT IN REACH.
[2021-09-05 03:38] LABS: Hemoglobin 11.4 g/dL (11.5-16.0); Mean Corpuscular HGB 27.6 pg (26.0-34.0); Mean Corpuscular HGB Conc 33.5 g/dL (31.5-36.5); Mean Corpuscular Volume 82 fL (80-100); Mean Platelet Volume 9.4 fL (9.1-12.4); Platelet Count 204 K/mm3 (150-400); RDW Coefficient Variation 13.4 % (11.7-14.2); RDW Standard Deviation 40.4 fL (35.1-46.3); Red Blood Cell Count 4.13 M/mm3 (3.80-5.20); White Blood Cell Count 11.47 K/mm3 (4.00-11.30)
[2021-09-05 03:59] LABS: Alanine Aminotransfer (ALT/SGP 107 U/L (12-78); Albumin, Blood 1.9 g/dL (3.4-5.0); Albumin/Globulin Ratio 0.5 (0.8-1.8); Alk Phos 126 U/L (50-136); Anion Gap 5 mmol/L (6-16); Aspartate Aminotrans (AST/SGOT 76 U/L (12-37); Bilirubin, Total 0.3 mg/dL (0.1-1.0); Blood Urea Nitrogen 14 mg/dL (8-24); Bun/Creatinine Ratio 19.6 (12.0-20.0); CO2, Blood 25 mmol/L (21-32); Calcium, Blood 8.6 mg/dL (8.5-10.1); Chloride, Blood 110 mmol/L (98-108); Creatinine, Blood 0.71 mg/dL (0.40-1.00); Globulin, Blood 4.2 g/dL (2.2-4.0); Glomerular Filtration Rate >60 (60-); Glucose, Blood 131 mg/dL (70-99); Potassium, Blood 4.2 mmol/L (3.5-5.5); Sodium, Blood 140 mmol/L (136-145); Total Protein, Blood 6.1 g/dL (6.4-8.2)
--- NOTE | 2021-09-05 05:15 | NUR ---
SHIFT SUMMARY PT A&OX4. ABLE TO MAKE NEEDS KNOWN. SP02>86% ON AIRVO, 60L 100% FI02. PT C/O OF DRY NOSTRILS. RT IN ROOM AT APPROX 0330 TO SWITCH PT TO CPAP, 9, 60%. PT SATTING 88%-94% CURRENTLY. HARSH PRODUCTIVE COUGH NOTED. PT LAYING ON BACK. PT ENCOURAGED TO LAY ON SIDE OR PRONE. PT PRONED FOR 2 HOURS DURING SHIFT. WHEN PRONING, SATS INCREASED TO 98%. PT NSR W/ PVCS, HAD 3 BEATS OF VTACH X3 DURING SHIFT. HR HIGH 50'S-80'S. PT HAS MEREDITH CATHETER DRAINING YELLOW URINE TO GRAVITY. PT C/O OF 8/10 PAIN BEHIND R EYE. MEDICATED W/ TYLENOL PER EMAR X1. PT C/O OF NAUSEA, MEDICATED W/ ZOFRAN PER EMAR X1. KCL INFUSED PER EMAR. PT SLEPT OFF AND ON T/O NIGHT. CALL LIGHT IN REACH. WILL GIVE REPORT TO ONCOMING NURSE.
--- NOTE | 2021-09-05 08:00 | NUR ---
INITIAL ASSESSMENT PATIENT ALERT AND ORIENTED X 4, AFEBRILE. PATIENT STATES THAT SHE HAS BEEN [place] SINCE GETTING COVID. PATIENT WEAK BUT ABLE TO MOVE ALL EXTREMITIES. PATIENT ANXIOUS AT TIMES. PATIENT REPORTS SHARP RLQ ABD PAIN WITH PALPATION. PATIENT SATTING 90% AND GREATER ON CPAP AT 9 L AND 60% FIO2 OR ON AIRVO AT 60 L AND 100% FIO2. PATIENT STATES SHE LIKES CPAP BETTER THAN AIRVO. PATIENT HAS OCCASIONAL, PRODUCTIVE HARSH COUGH. PATIENT SOB WITH EXERTION. RR IN THE 30S. LUNGS COARSE IN LOWER LOBES. PATIENT IN SR, HR 70S TO 90S. SBP IN THE 150S. PATIENT DENIES NAUSEA. LAST BM ON 09/02. MEREDITH IN PLACE DRAINING DARK YELLOW COLORED URINE. SKIN PALE. SCATTERED BRUISES NOTED. NS KCL 20 MEQ INFUSING AT 100 MLS/ HOUR. BED LOW, CALL LIGHT IN REACH. WILL CONTINUE TO MONITOR PATIENT FREQUENTLY THROUGHOUT SHIFT.
--- NOTE | 2021-09-05 09:00 | NUR ---
UPDATED DR. PAREDES AND DR. VICENTE ON PATIENT STATUS. INFORMED THAT PATIENT PREFERS CPAP TO AIRVO AND IS CURRENTLY AT 9 L AND 60% FIO2. INFORMED THAT PATIENT DID AGREE TO PRONE OT DURING THEATRE DIRECTOR AND SATS CAME UP TO 98%. INFORMED THAT PATIENT REFUSED PRONING OTHER TIMES SHE WAS ASKED DURING NIGHT. INFORMED DR. PAREDES THAT PATIENT HAD AROUND 5 EPISODES OF 3 BEAT VTACH ON THEATRE DIRECTOR. INFORMED DR. PAREDES THAT PATIENT COMPLAINING OF RLQ ABD PAIN AND THAT SHE REPORTS IT IS SHARP PAIN WITH PALPATION. INFORMED DR. VICENTE THAT PATIENT URINE CULTURE CAME BACK POSITIVE FOR E. COLI. RECEIVED ORDER TO PLACE PATIENT ON FULL LIQUID DIET. NO OTHER ORDERS RECEIVED AT THIS TIME.
[2021-09-05 09:11] LABS: HBSAG SCREEN Negative (Negative); HEP A AB, IGM Negative (Negative); HEP B CORE AB, IGM Negative (Negative); HEP C VIRUS AB <0.1 (0.0-0.9)
--- NOTE | 2021-09-05 12:33 | NUR ---
PATIENT AFEBRILE. PATIENT SATTING 90% AND GREATER ON AIRVO AT 60 L AND 100% FIO2. RR 20S TO 30S. HR 70S TO 90S. SBP IN THE 140S. OCCASIONAL PVCS NOTED. PATIENT GIVEN FULL LIQUID LUNCH. NO COMPLAINTS. NO OTHER ACUTE CHANGES TO NOTE ON AT THIS TIME. WILL CONTINUE TO MONITOR.
--- NOTE | 2021-09-05 16:45 | NUR ---
PATIENT AFEBRILE. PATIENT REMAINS ON AIRVO AT 60 L AND 100% FIO2. PATIENT IN SR WITH OCCASIONAL PACS AND PVCS. HR 70S TO 80S. SBP IN THE 140S. NO OTHER ACUTE CHANGES TO NOTE ON AT THIS TIME. WILL CONTINUE TO MONITOR.
--- NOTE | 2021-09-05 18:22 | NUR ---
SHIFT SUMMARY PATIENT REMAINED ALERT AND ORIENTED X 4, AFEBRILE. PATIENT NAPPED ON AND OFF THROUGHOUT SHIFT. PATIENT ANXIOUS/ IRRITABLE A COUPLE OF TIMES. PATIENT HAD COMPLAINTS OF PAIN TO RLQ OF ABD AND PAIN BEHIND EYES. PATIENT REMAINED ON EITHER CPAP 9 AND 60% FIO2 OR ON AIRVO AT 60 L AND 100% FIO2. PATIENT REMAINED SOB WITH EXERTION. RR 20S TO 30S. PATIENT REMAINED SR TO ST WITH OCCASIONAL PVCS AND PACS. HR 70S TO LOW 100S. SBP 140S TO 150S. PATIENT HOME BP MED ORDERED THIS SHIFT. PATIENT GIVEN PRN ZOFRAN OT THIS SHIFT. NO BM THIS SHIFT. PATIENT TOLERATED FULL LIQUID DIET WELL; INCREASED TO SOFT DIET BUT ASKED TO BE PLACED BACK ON FULL LIQUID DIET. MEREDITH DRAINED 1300 MLS OF DARK YELLOW COLORED URINE. NO CHANGES TO SKIN NOTED. PATIENT PRONED OT THIS SHIFT, BUT WAS ENCOURAGED TO PRONE MULTIPLE TIMES TODAY. NS KCL DECREASED FROM 100 MLS/ HOUR TO TKO. REMDESIVIR AND OLUMIANT STARTED THIS SHIFT. PATIENT HAS NO COMPLAINTS AT THIS TIME. BED LOW, CALL LIGHT IN REACH. REPORT WILL BE GIVEN TO ONCOMING MOLD INSPECTOR NURSE SHORTLY.
--- NOTE | 2021-09-05 20:32 | NUR ---
ASSUMED CARE OF PATIENT, HER SATS WERE DROPPING UPON MY ENTRANCE TO THE ROOM. PT NEEDED TO BE AWAKENED TO ASSESS. SHE DENIED ANY SHORTNESS OF BREATH. ON AIRVO 60L AND 100%, ASKED IF SHE WOULD GO BACK ON THE CPAP AND SHE SAID NO FOR NOW. SHE DID STATE THAT HER HEART HAD FELT LIKE IT WAS PULSATING ON THE OUTSIDE OF HER CHEST EARLIER BUT NO LONGER. SHE ALSO COMPLAINED OF RIGHT RIB/UPPER QUADRANT PAIN WHILE AUSCULATION PERFORMED. ABDOMEN IS SOFT, SLIGHTLY TENDER NOTED IN THE RUQ. SHE DENIES ANY OTHER COMPLAINTS AT THIS TIME. MEREDITH TO GRAVITY DRAIN WITH DARK YELLOW RETURN.
[2021-09-06 03:53] LABS: Alanine Aminotransfer (ALT/SGP 122 U/L (12-78); Albumin, Blood 1.8 g/dL (3.4-5.0); Albumin/Globulin Ratio 0.4 (0.8-1.8); Alk Phos 134 U/L (50-136); Anion Gap 6 mmol/L (6-16); Aspartate Aminotrans (AST/SGOT 87 U/L (12-37); Bilirubin, Total 0.3 mg/dL (0.1-1.0); Blood Urea Nitrogen 18 mg/dL (8-24); Bun/Creatinine Ratio 26.1 (12.0-20.0); CO2, Blood 24 mmol/L (21-32); Calcium, Blood 8.7 mg/dL (8.5-10.1); Chloride, Blood 108 mmol/L (98-108); Creatinine, Blood 0.69 mg/dL (0.40-1.00); Globulin, Blood 4.5 g/dL (2.2-4.0); Glomerular Filtration Rate >60 (60-); Glucose, Blood 144 mg/dL (70-99); Magnesium, Blood 2.2 mg/dL (1.6-2.4); Potassium, Blood 4.2 mmol/L (3.5-5.5); Sodium, Blood 138 mmol/L (136-145); Total Protein, Blood 6.3 g/dL (6.4-8.2)
--- NOTE | 2021-09-06 04:40 | NUR ---
PT HAD REMOVED HER AIRVO AND WAS COMPLAINING "I CAN'T BREATHE". PT INSTRUCTED THAT WITHOUT THE OXYGEN HER SATURATIONS WERE DROPPING TO THE 50'S. AIRVO AND NRB PLACED ON PATIENT. PT GIVEN ATIVAN. PT PLACED ON CPAP WITH LITTLE IMPROVE- MENT RELATED TO HER SHALLOW BREATHING FROM THE ATIVAN, PT THEN PLACED ON THE BIPAP 16/10, RATE 12 100%. PT TOLD SHE NEEDS TO KEEP IT ON. ASKED PT TO TURN ON HER SIDE OR PRONE, SHE AGREES BUT THEN REFUSES TO DO SO. PT TOLD THAT SHE IS MOVING IN THE WRONG DIRECTION, SHE SAYS SOMETHING ABOUT "[place]". SHE NEEDS TO TURN TO HER SIDE AND GET OFF HER BACK. SHE AGAIN AGREES BUT DOESN'T CHANGE HER POSITION. PT'S SATS NOW BETTER IN THE MID 90'S ON BIPAP.
--- NOTE | 2021-09-06 05:23 | NUR ---
PT CONTINUES TO HAVE HER SATS DROP TO MID 80'S, PT POSITIONED ON HER SIDE BY 2 STAFF MEMBERS, SHE AGAIN PUTS HERSELF BACK TO HER BACK. SHE IS TOLD THAT SHE IS IN A VERY PRECARIOUS SITUATION AND THAT IF SHE DOESN'T HELP US HELP HER SHE WILL BE HAVING A TUBE IN HER THROAT AND POUNDING ON HER CHEST FOR CPR. SHE SAYS, "YES" BUT "MY RIBS HURT". TRIED TO HELP POSITION WITH EXTRA PILLOWS AND CUSHION FOR RIBS, PT GETS EXASPERATED AND YELLS AT THIS RN. SHE THEN PUTS HER- SELF BACK ON HER BACK. CONTINUES TO PULL ON THE BIPAP MASK TRYING TO "GET AIR" BY USING HER FINGER BETWEEN HER CHIN AND THE MASK. BIPAP SETTINGS REMAIN 16/10 RATE OF 12 AND 100%.
[2021-09-06 14:09] LABS: QUANTIFERON NIL VALUE 0.05 IU/mL (.); QUANTIFERON TB1 AG VALUE 0.06 IU/mL (.); QUANTIFERON TB2 AG VALUE 0.06 IU/mL (.)
--- NOTE | 2021-09-06 17:17 | NUR ---
SHIFT SUMMARY PT REMAINS BIPAP DEPENDENT THIS SHIFT. PT TRIALED ON AIRVO MULTIPLE TIMES WITHOUT SUCCESS. BIPAP 16/10, FIO2 90%. PT ONLY ABLE TO TAKE BIPAP OFF FOR QUICK SIPS OF WATER. DURING SIPS OF WATER PT DESATURATES TO LOW 80'S RAPIDLY. PT PROVIDED EXTENSIVE EDUCATION ABOUT BIPAP AND O2 REQUIREMENTS AND PLAN OF CARE. POWERGLIDE TO SALAS PLACED THIS AM. PRECEDEX INFUSING AT 0.5 MCG/KG/MIN. MEREDITH REMAINS IN PLACE WITH YELLOW URINE OUTPUT NOTED. PT REFUSED PRONE POSITIONING THIS SHIFT. VITAL SIGNS STABLE WHEN ON BIPAP. WILL CONTINUE TO MONITOR AND REPORT OFF TO ONCOMING RN.
--- NOTE | 2021-09-06 21:36 | NUR ---
ASSUMED CARE OF GLADYS, SHE AWAKENS EASILY. PRECEDEX @ 0.5MCG/KG. SHE IS AGITATED AND IRRITABLE, BARKING AT THE STAFF. SHE STATES "I HAVEN'T HAD ANY FOOD ALL DAY". WORKED WITH HER TO TAKE HER MEDICATION AND SOME ENSURE. ENCOURAGED TO NOT PROCASTINATE, SHE YELLS "GET OFF MY BACK!". I REMIND HER THAT I AM HERE TO HELP HER BREATHE AND THAT IF I DON'T HELP CONTROL THE SITUATION SHE WILL END UP BEING INTUBATED. SHE GLARES AT THIS NURSE. SHE CONTINUES TO TRY TO PULL MASK OUT AND AWAY FROM HER CHIN ON OCCASION. MEREDITH TO GRAVITY DRAINAGE. TURNED TO HER SIDE WITH 2 PERSON ASSIST.
--- NOTE | 2021-09-06 22:20 | NUR ---
WENT IN TO TURN GLADYS, OFFERED TO FINISH HER ENSURE BEVERAGE. SHE WAS TOLD HER SATS WERE DROPPING AND WE NEEDED TO PUT HER MASK BACK ON AND SHE TOLD US TO QUIT TELLING HER THAT, WE TOLD HER THAT WE WERE HERE TO KEEP HER ALIVE AND SHE SAID SHE DIDN'T WANT TO HEAR THAT AGAIN. SHE CONTINUES TO FIDDLE WITH THE BIPAP MASK AND THE NASAL PADDING HAS COME OUT. TRYING TO REPOSITION WITH LESS LEAK BUT SHE AGAIN BEGINS TO MESS WITH THE MASK AND CAUSES FURTHER LEAKING.
--- NOTE | 2021-09-07 04:48 | NUR ---
WENT IN FOR RADIOGRAPHS, BLOOD DRAW, ORAL CARE, SIPS OF WATER. PT ENCOURAGED TO TAKE SLOW DEEP BREATHS, GEAR UP FOR THE MASK REMOVAL, TO DRINK JUST A FEW SIPS AND PUT MASK BACK ON. PT ALWAYS FIGHTS TO HAVE MASK BACK ON, PT GETS AGITATED NURSE TRIES TO REMIND HER THAT HER SATS ARE DROPPING AND HER SHORTNESS OF BREATH WILL ONLY GET WORSE. HER SATURATIONS DO DROP TO THE 55'S, PT IS ENCOURAGED STRONGLY TO ALLOW THE MASK BACK IN PLACE AND QUIT AVOIDING MASK PLACEMENT. HER POWER GLIDE THEN WON'T FLUSH AND WON'T WITHDRAW BLOOD, GABBIERN, CALLED IN TO ASSESS WELL. UNABLE TO FLUSH OR WITHDRAW BLOOD EITHER. POWER GLIDE REMOVED AND NOTED TO BE KINKED AT INSERTION SITE, ASKED IF SALVAGEABLE, STATES UNABLE. LAB NOTIFIED THAT THEY WILL NEED TO PERFORM BLOOD DRAW.
[2021-09-07 05:45] LABS: Albumin, Blood 1.8 g/dL (3.4-5.0); Anion Gap 8 mmol/L (6-16); Blood Urea Nitrogen 33 mg/dL (8-24); Bun/Creatinine Ratio 46.5 (12.0-20.0); CO2, Blood 25 mmol/L (21-32); Calcium, Blood 8.7 mg/dL (8.5-10.1); Chloride, Blood 106 mmol/L (98-108); Creatinine, Blood 0.71 mg/dL (0.40-1.00); Glomerular Filtration Rate >60 (60-); Glucose, Blood 200 mg/dL (70-99); Phosphorus, Blood 3.7 mg/dL (2.5-4.9); Potassium, Blood 4.1 mmol/L (3.5-5.5); Sodium, Blood 139 mmol/L (136-145)
[2021-09-07 06:14] LABS: BASOPHILS ABSOLUTE AUTO 0.02 K/mm3 (0.00-0.23); BASOPHILS PERCENT AUTO 0 % (0-2); EOSINOPHILS PERCENT AUTO 0 % (0-6); Hematocrit 37.7 % (33.0-51.0); Hemoglobin 12.6 g/dL (11.5-16.0); IMMATURE GRAN ABSOLUTE AUTO 0.19 K/mm3 (0.00-0.10); IMMATURE GRAN PERCENT AUTO 2 % (0-1); LYMPHOCYTES ABSOLUTE AUTO 0.31 K/mm3 (0.84-5.20); LYMPHOCYTES PERCENT AUTO 3 % (21-46); MONOCYTES PERCENT AUTO 4 % (4-13); Mean Corpuscular HGB 27.4 pg (26.0-34.0); Mean Corpuscular HGB Conc 33.4 g/dL (31.5-36.5); Mean Corpuscular Volume 82 fL (80-100); NEUTROPHILS ABSOLUTE AUTO 10.43 K/mm3 (1.96-9.15); NEUTROPHILS PERCENT AUTO 91 % (41-73); RDW Coefficient Variation 13.3 % (11.7-14.2); White Blood Cell Count 11.45 K/mm3 (4.00-11.30)
[2021-09-07 06:21] LABS: Mean Platelet Volume 9.4 fL (9.1-12.4)
[2021-09-07 07:25] LABS: Platelet Count 214 K/mm3 (150-400)
--- NOTE | 2021-09-07 11:45 | NUR ---
UPDATE PT CONTINUES TO BE BIPAP DEPENDENT. DURING ATTEMPTED BREAK FROM BIPAP THIS AM FOR ORAL CARE AND SIPS OF WATER, PT WENT INTO COUGHING FIT AND CHOKED ON WATER. SPO2 DOWN TO 60%. PT RECOVERED AND HAS BEEN STRICT NPO SINCE. PT REMAINS IN SBW RESTRAINTS AND SEDATED WITH PRECEDEX. PT CONTINUES TO ASK FOR WATER. EXTENSIVE THERAPEUTIC COMMUNICATION AND EDUCATION PROVIDED ABOUT SAFETY AND CURRENT RESPIRATORY STATUS. PT CONTINUES TO FIGHT CARE AND HAS REQUESTED PATIENT ADVOCATE. PATIENT ADVOCATE CALLED AND UPDATED TO CURRENT PT STATUS. WILL CONTINUE TO MONITOR.
--- NOTE | 2021-09-07 17:52 | NUR ---
SHIFT SUMMARY PT CONTINUES TO BE BIPAP DEPENDENT THIS SHIFT. PT TOLERATED SHORT BREAK THIS AM POORLY. BIPAP SETTINGS 16/10, FIO2 100%. PT WITH REPEATED ATTEMPTS TO PULL AT BIPAP MASK DESPITE EXTENSIVE DISCUSSION ABOUT ILLNESS AND NEED FOR BIPAP SUPPORT. PT WITH SBW RESTRAINTS IN PLACE. POWERGLIDE TO DAWNA PLACED THIS AM. PRECEDEX CURRENTLY INFUSING AT 1.4 MCG/KG/MIN. PT MED WITH PRN ATIVAN THIS AFTERNOON FOR BIPAP TOLERANCE. LORETO FROM PALLIATIVE CARE ATTEMPTED TO SEE PT THIS AFTERNOON, PT TOO SEDATE FOR DISCUSSION. VITAL SIGNS STABLE WITH BIPAP IN PLACE. PT HYPERTENSIVE. MEREDITH REMAINS IN PLACE WITH YELLOW URINE OUTPUT NOTED. SEE PREVIOUS NOTE FOR MORE INFO. WILL CONTINUE TO MONITOR AND REPORT OFF TO ONCOMING RN.
--- NOTE | 2021-09-07 17:56 | NUR ---
requesting an "advocate" today, stating she wants to eat "real food", and attempting to remove her bipap mask, causing her 02 to drop into the 60's, and it is extremely hard to get her 02 sats back up into the 90's once she drops. She is currently in restraints for her safety. I attemtped to speak with the patient, but she remained somnolent, and only told me, "I want to take this mask off." I will remain available.
--- NOTE | 2021-09-07 20:00 | NUR ---
RECEIVED PT FROM PAIGE, SHE IS ON BIPAP 16/10 RATE 12 SATS MID 90'S. SHE IS IN SBW RESTRAINTS AND PULLS ON THEM WHEN AWAKENED. SHE IS EASILY AROUSED BY VERBAL STIMULI AND STARTS HOLLERING OUT ABOUT TAKING THE MASK OFF. RESTRAINTS REMOVED FOR CHECK AND POSITION CHANGE, PT IMMEDIATELY GRABS AT HER MASK AND YELLS SHE WANTS WATER. ORAL CARE DONE WITH ONESIMO-PORT. MOUTH CLEANED AND MOISTURE GIVEN. PT CHOMPING ON THE SPONGE IF IT WERE CANDY. PT EDUCATED TO WHAT IT WAS AND WHY. PT BECAME SO AGGREVATED THAT SHE PULLED THE TUBING OFF HER MASK AND HER SATS DROPPED TO THE 70'S IMMEDIATELY. THAT WAS WITH RESTRAINTS. PT TALKED TO ABOUT HER NEEDING TO DECIDE TO FIGHT FOR HER HEALTH OR CONTINUE TO FIGHT AGAINST THE CARE WE ARE GIVING. SHE HAS CALMED DOWN A BIT.
--- NOTE | 2021-09-08 00:08 | NUR ---
2330 WENT IN TO CHECK ON PATIENT SHE WAS A BIT RESTLESS, SHE HAD GOTTEN THE RIGHT WRIST RESTRAINT OFF AND PULLED OUT THE IV IN THE RIGHT WRIST. SHE WAS AGITATED AND IRRITABLE. ORAL CARE DONE, CHEWING ON THE SPONGES, REMINDED IT WAS FOR MOUTH CARE AND MOISTURE. SHE YELLING AT STAFF UNDER HER MASK, IV R/S IN THE RIGHT WRIST. TOLERATED WELL.
[2021-09-08 05:33] LABS: Albumin, Blood 1.8 g/dL (3.4-5.0); Anion Gap 8 mmol/L (6-16); Blood Urea Nitrogen 41 mg/dL (8-24); Bun/Creatinine Ratio 57.5 (12.0-20.0); CO2, Blood 26 mmol/L (21-32); Calcium, Blood 8.7 mg/dL (8.5-10.1); Chloride, Blood 109 mmol/L (98-108); Creatinine, Blood 0.71 mg/dL (0.40-1.00); Glomerular Filtration Rate >60 (60-); Glucose, Blood 169 mg/dL (70-99); Potassium, Blood 4.1 mmol/L (3.5-5.5); Sodium, Blood 143 mmol/L (136-145)
--- NOTE | 2021-09-08 05:38 | NUR ---
GLADYS CONTINUES ON BIPAP 17/06, RATE 12 DOWN TO 80%, SATS MID 90'S. SHE DOES WELL WHEN SHE IS STILL AND NOT MESSING WITH HER MASK. REDDIPORT ACCESS DONE AND ORAL CARE COMPLETED, SHE TRIES TO EAT THE SPONGES. ANOTHER POWER GLIDE PLACED IN SALAS, UNABLE TO DRAW FROM THE RIGHT UPPER ARM, PT HAD PULLED OUT ONE PERIPHERAL IV AND WAS CLOSE TO DOING IT AGAIN WITH THE WRIST RESTRAINTS. SHE HAS BEEN TURNED Q2, MEREDITH WITH 500ML DARK YELLOW RETURN. LEGS AND ARMS WERE LOTIONED. LUNGS REMAIN DIMINISHED T/O, ABDOMEN QUIET, PULSES GOOD X4. PRECEDEX @ 1.4MCG/KG. WILL REPORT TO NEXT SHIFT WHEN AVAILABLE.
[2021-09-08 08:55] LABS: QUANTIFERON-TB GOLD PLUS Indeterminate (Negative)
--- NOTE | 2021-09-08 18:21 | NUR ---
SHIFT SUMMARY: NEURO: PT IN BILATERAL SOFT WRIST RESTRAINTS FOR LINE/TUBE PROTECTION. FREQUENTLY ATTEMPTS TO PULL OFF BIPAP/OXYGEN. SHE IS ORIENTED TO PERSON, PLACE, SELF AND SITUATION. FOLLOWS COMMANDS, AND MAKES HER NEEDS KNOWN, BUT DOES NOT LIKE TO OPEN HER EYES. MUMBLES, OCCASIONALLY REPEATS HERSELF. PULM: SWITCHED FROM BIPAP TO HHF TODAY. CURRENTLY AT 60L, 90% WITH SATS >92. OCCASIONAL PRODUCTIVE COUGH CV: NSR. BP APPROPRIATE. RLU TENDERNESS, MD AWARE. 600CC UOP. NO BM GTTS: PRECEDEX 1.4
[2021-09-09 04:16] LABS: Albumin, Blood 1.9 g/dL (3.4-5.0); Anion Gap 6 mmol/L (6-16); Blood Urea Nitrogen 43 mg/dL (8-24); Bun/Creatinine Ratio 73.3 (12.0-20.0); CO2, Blood 25 mmol/L (21-32); Calcium, Blood 8.5 mg/dL (8.5-10.1); Chloride, Blood 109 mmol/L (98-108); Creatinine, Blood 0.59 mg/dL (0.40-1.00); Glomerular Filtration Rate >60 (60-); Glucose, Blood 169 mg/dL (70-99); Phosphorus, Blood 3.1 mg/dL (2.5-4.9); Potassium, Blood 5.1 mmol/L (3.5-5.5); Sodium, Blood 140 mmol/L (136-145)
--- NOTE | 2021-09-09 17:44 | NUR ---
PT STILL ON PRECEDEX GTT. ATIVAN AND FENTANYL GIVEN PRN FOR AGITATION. PT GETS AGITATED AND ATTEMPTS TO PULL OFF BIPAP/OXYGEN. PT IS ORIENTED TO SELF, PLACE, SITUATION. ABLE TO ASK FOR HER NEEDS. GETS VERY AGITATED IF HER NEEDS ARE NOT MET IMMEDIATELY. SHE RECEIVED SIPS OF WATER AND ENSURE WHILE ON HHF TODAY. SR 60S-70S. PICC PLACED BY PICC RN TODAY. SWITCHED FROM HHF TO CPAP AROUND 1300 TODAY DUE TO INABILITY TO MAINTAIN SATS >90 ON 100% FIO2. NOW ON CPAP 9 AT 75%. 650CC UOP. DISCUSSION WITH DR. GOTTLIEB THIS MORNING ABOUT BM STATUS AND OCCASIONAL HTN, NO NEW ORDERS AT THIS TIME. TURNS Q2, ORAL CARE PRN.
--- NOTE | 2021-09-09 20:18 | NUR ---
review of pt with nursing Will see how today goes and discuss prognosis with intesivist. pt kps score is 30%.
[2021-09-10 03:15] LABS: BASOPHILS ABSOLUTE AUTO 0.02 K/mm3 (0.00-0.23); BASOPHILS PERCENT AUTO 0 % (0-2); EOSINOPHILS PERCENT AUTO 0 % (0-6); Hematocrit 37.5 % (33.0-51.0); Hemoglobin 12.4 g/dL (11.5-16.0); IMMATURE GRAN ABSOLUTE AUTO 0.15 K/mm3 (0.00-0.10); IMMATURE GRAN PERCENT AUTO 2 % (0-1); LYMPHOCYTES ABSOLUTE AUTO 0.17 K/mm3 (0.84-5.20); LYMPHOCYTES PERCENT AUTO 2 % (21-46); MONOCYTES ABSOLUTE AUTO 0.33 K/mm3 (0.16-1.47); MONOCYTES PERCENT AUTO 3 % (4-13); Mean Corpuscular HGB 27.2 pg (26.0-34.0); Mean Corpuscular HGB Conc 33.1 g/dL (31.5-36.5); Mean Corpuscular Volume 82 fL (80-100); Mean Platelet Volume 10.2 fL (9.1-12.4); NEUTROPHILS ABSOLUTE AUTO 9.63 K/mm3 (1.96-9.15); NEUTROPHILS PERCENT AUTO 93 % (41-73); Platelet Count 112 K/mm3 (150-400); RDW Coefficient Variation 13.2 % (11.7-14.2); RDW Standard Deviation 39.8 fL (35.1-46.3); Red Blood Cell Count 4.56 M/mm3 (3.80-5.20)
[2021-09-10 03:31] LABS: Anion Gap 6 mmol/L (6-16); Blood Urea Nitrogen 43 mg/dL (8-24); Bun/Creatinine Ratio 81.4 (12.0-20.0); CO2, Blood 26 mmol/L (21-32); Calcium, Blood 8.3 mg/dL (8.5-10.1); Chloride, Blood 109 mmol/L (98-108); Creatinine, Blood 0.53 mg/dL (0.40-1.00); Glomerular Filtration Rate >60 (60-); Glucose, Blood 178 mg/dL (70-99); Potassium, Blood 3.9 mmol/L (3.5-5.5); Sodium, Blood 141 mmol/L (136-145)
--- NOTE | 2021-09-10 12:37 | NUR ---
ATTEMPT TO INSERT NG TUBE WITH RT AND 2ND RN. PT DID NOT TOLERATE, WAS COUGHIHNG YELLING, TRASHING, DESATTING. DR. GOTTLIEB NOTIFIED OF UNSUCCESSFUL ATTEMPT.
--- NOTE | 2021-09-10 17:46 | NUR ---
SHIFT SUMMARY REMAINS ON PRECEDEX DRIP WITH PRN FENTANYL AND ATIVAN GIVEN FOR BREAKTHROUGH AGITATION. RESTRAINTS X2 UPPER, STILL ATTEMPTS TO BREAK OUT OF RESTRAINTS AND REMOVE MASK. PT HAS BEEN ON CPAP OF 9 TODAY WITH FIO2 70-90%. DISCUSSION TODAY WITH DR. GOTTLIEB ABOUT GI STATUS, TIME SINCE LAST BM. ATTEMPT TO PLACE NGT WAS UNSUCCESSFUL, SEE PREVIOUS NOTE. ALSO DISCUSSED DECREASE IN PLATELETS WITH DR. GOTTLIEB THIS MORNING, ORDERS TO CONTINUE TO MONITOR. 600CC UOP TODAY. TURNS Q2, NO NEW SKIN ISSUES.
[2021-09-11 03:33] LABS: BASOPHILS ABSOLUTE AUTO 0.02 K/mm3 (0.00-0.23); BASOPHILS PERCENT AUTO 0 % (0-2); EOSINOPHILS PERCENT AUTO 0 % (0-6); Hematocrit 33.8 % (33.0-51.0); Hemoglobin 11.3 g/dL (11.5-16.0); IMMATURE GRAN PERCENT AUTO 2 % (0-1); LYMPHOCYTES PERCENT AUTO 1 % (21-46); MONOCYTES ABSOLUTE AUTO 0.46 K/mm3 (0.16-1.47); MONOCYTES PERCENT AUTO 4 % (4-13); Mean Corpuscular HGB 27.8 pg (26.0-34.0); Mean Corpuscular HGB Conc 33.4 g/dL (31.5-36.5); Mean Corpuscular Volume 83 fL (80-100); Mean Platelet Volume 9.9 fL (9.1-12.4); NEUTROPHILS ABSOLUTE AUTO 11.63 K/mm3 (1.96-9.15); NEUTROPHILS PERCENT AUTO 94 % (41-73); Platelet Count 103 K/mm3 (150-400); RDW Coefficient Variation 13.3 % (11.7-14.2); RDW Standard Deviation 40.7 fL (35.1-46.3); Red Blood Cell Count 4.07 M/mm3 (3.80-5.20); White Blood Cell Count 12.41 K/mm3 (4.00-11.30)
[2021-09-11 03:45] LABS: Anion Gap 8 mmol/L (6-16); Blood Urea Nitrogen 40 mg/dL (8-24); Bun/Creatinine Ratio 74.2 (12.0-20.0); CO2, Blood 24 mmol/L (21-32); Calcium, Blood 7.4 mg/dL (8.5-10.1); Chloride, Blood 109 mmol/L (98-108); Creatinine, Blood 0.54 mg/dL (0.40-1.00); Glomerular Filtration Rate >60 (60-); Glucose, Blood 195 mg/dL (70-99); Potassium, Blood 3.6 mmol/L (3.5-5.5); Sodium, Blood 141 mmol/L (136-145)
--- NOTE | 2021-09-11 08:19 | NUR ---
ASSUMING PT CARE: PT HAD SLID HERSELF DOWN THE BED & WAS ATTEMPTING TO PULL OFF CPAP MASK, THRASHING HEAD AROUND & YELLING TO HAVE THE MASK REMOVED. SATS DEC TO 78%. FiO2 INC FROM 60%-90%. PT WAS UNABLE TO BE CONSOLED; REMINDED OF THE IMPORTANCE OF KEEPING MASK ON. PT CONTINUED TO YELL "YOU'RE A DEVIL" & "IF I RIGHT HERE, YOU ARE THE ONE TO BLAME". ASSESSMENTS LIMITED D/T PT BEHAVIOR & REFUSAL TO PARTICIPATE. AFTER A FEW MINS, SATS RETURNED TO 90s & PT RETURNED TO RESTING. PRECEDEX @ 1.4mcg/kg/hr. WILL RE-EVALUATE PLACING PT ON AIRVO APPROPRIATE.
--- NOTE | 2021-09-11 09:45 | NUR ---
UPDATE: AGITATION & GOTTLIEB ROUNDING. PT FOUND TO HAVE PULLED LOOSE THE CPAP CIRCUIT & SATS QUICKLY DEC TO 30s-40s. SHE BECAME SOMNOLENT & RESPONSIVE ONLY TO NOX STIM. FiO2 INC TO 100% & AFTER APPROX 2min PT RECOVERED TO 97%. WHEN ASKED IF SHE WOULD RATHER BE INTUBATED PT STS "YES" & NODS HEAD. CHERY UPDATED & STS DESPITE SOME PT IMPROVEMENT & FiO2 DEC OVER THE PAST FEW DAYS, INTUBATION MAY BE CONSIDERED FOR PT SAFETY SHE CONTINUES TO INTERFERE W/ CARE & REMOVE ESSENTIAL EQUIPMENT. PT MEDICATED W/ 100mg IV FENTANYL & APPEARS TO BE DOING WELL NOW.
--- NOTE | 2021-09-11 15:13 | NUR ---
UPDATE: INTUBATION PT HAD PULLED AIRVO CANNULA OUT OF HER MOUTH & SATS QUICKLY DEC TO 40s. RN IMMEDIATELY @ BEDSIDE & DESPITE 100% FiO2 & BIPAP MASK REPLACED, PT BECAME UNRESPONSIVE, CYANOTIC, W/ HR 30s. CHERY BELIEVES THOUGH SATS RECOVER QUICKLY, BiPAP IS NOT A SAFE SOLUTION FOR THE PT. RT @ BEDSIDE & PT WAS MEDICATED W/ 2mg VERSED, 80mg PROPOFOL, 80mg ROCURONIUM; INTUBATED W/ 7.5 ETT, 25cm @ THE LIP. +JOSIAH BS, +COLOR CHANGE. CXR CONFIRMED BY CHERY.
--- NOTE | 2021-09-11 15:28 | NUR ---
Update son SPOKE WITH EMELIA, PATIENTS SON, IN [place]. UPDATED HIM ON NEWEST SITUATION WITH HIS MOM. SHE WAS INTUBATED THIS AFTERNOON AT 1433. HE WOULD LIKE AN UPDATE IN A FEW DAYS OR SOONER IF THERE ARE NEW CHANGES IN [facility].
--- NOTE | 2021-09-11 18:45 | NUR ---
SHIFT SUMMARY: PT INTUBATED & SEDATED. VENT: AC/VC 16/400, 10/75%. PROPOFOL 65mcg/kg/min. PT HAS SOME EPISODES OF COUGHING FOLLOWED BY A PERIOD OF HYPOXIA W/ SATS 86-88%. PT RECOVERS WELL W/ 100% FiO2 & SUCTIONING. PRECEDEX HAS BEEN TITRATED OFF PER GOTTLIEB & PT WILL BE TRANSITIONED TO TF ONCE CLINIMIX IS COMPLETE. PLAN TO KEEP PT @ A PEEP OF 10 T/O THE NIGHT & RE-EVALUTE IN THE AM. BOTH PT's FRIEND WILLY & PT's SON EMELIA HAVE BEEN UPDATED ON PT STATUS. SEE PREVIOUS NOTATION FOR PT PROGRESSION.
[2021-09-12 03:19] LABS: Hematocrit 34.6 % (33.0-51.0); Hemoglobin 11.4 g/dL (11.5-16.0); Mean Corpuscular HGB 27.5 pg (26.0-34.0); Mean Corpuscular HGB Conc 32.9 g/dL (31.5-36.5); Mean Corpuscular Volume 83 fL (80-100); Mean Platelet Volume 10.2 fL (9.1-12.4); Platelet Count 143 K/mm3 (150-400); RDW Coefficient Variation 13.2 % (11.7-14.2); RDW Standard Deviation 40.5 fL (35.1-46.3); Red Blood Cell Count 4.15 M/mm3 (3.80-5.20); White Blood Cell Count 20.64 K/mm3 (4.00-11.30)
[2021-09-12 03:37] LABS: Alanine Aminotransfer (ALT/SGP 54 U/L (12-78); Albumin, Blood 1.7 g/dL (3.4-5.0); Albumin/Globulin Ratio 0.5 (0.8-1.8); Alk Phos 128 U/L (50-136); Anion Gap 6 mmol/L (6-16); Aspartate Aminotrans (AST/SGOT 27 U/L (12-37); Bilirubin, Total 0.8 mg/dL (0.1-1.0); Blood Urea Nitrogen 37 mg/dL (8-24); CO2, Blood 26 mmol/L (21-32); Calcium, Blood 7.8 mg/dL (8.5-10.1); Chloride, Blood 108 mmol/L (98-108); Creatinine, Blood 0.57 mg/dL (0.40-1.00); Globulin, Blood 3.6 g/dL (2.2-4.0); Glomerular Filtration Rate >60 (60-); Glucose, Blood 173 mg/dL (70-99); Magnesium, Blood 2.8 mg/dL (1.6-2.4); Sodium, Blood 140 mmol/L (136-145); Total Protein, Blood 5.3 g/dL (6.4-8.2); Triglycerides 325 mg/dL (30-160)
[2021-09-12 03:44] LABS: BAND PERCENT MAN 4 % (0-8); BASOPHILS PERCENT MAN 0 % (0-2); EOSINOPHILS PERCENT MAN 0 % (0-6); LYMPHOCYTES PERCENT MAN 1 % (21-46); METAMYELOCYTE PERCENT MAN 1 % (0-0); MONOCYTES PERCENT MAN 1 % (4-13); NEUTROPHILS ABSOLUTE MAN 20.02 K/mm3 (1.96-9.15); SEG NEUTROPHILS PERCENT MAN 93 % (41-73); TOTAL CELLS COUNTED 100
--- NOTE | 2021-09-12 08:30 | NUR ---
Received report from Michelle BURNETT. Patient remains intubated and sedated with 7.5 ET and 24 cm at teeth with settings of 16/400/70%/10 and sats 94%. She withdrawls with care and painful stimuli. She has dobhoff in right nares and is infusing Pivot 1.5 at 30 ml/hr and 30 ml/Q4 water flush. She has PICC line to SALAS dressing intact and site WNL's and is infusing Propofol at 65 mcg/kg/min, Levophed at 2 mcg/min, NS TKO, Fentanyl at 100 mcg/hr, and Precedex at 0.7 mcg/kg/hr. She has 14Fr aiken draining to gravity ig colored urine. Patient in SR 80's and systolics 80-100's.
--- NOTE | 2021-09-12 09:35 | NUR ---
No changes to vent settings or gtt's.
--- NOTE | 2021-09-12 11:47 | NUR ---
Patient has been resting quietly on current sedation and vent settings of 16/400/70/10 and sats remains >90%.No changes to gtt's. Manriquez remains patent and draining to gravity gi colored urine. Tolerated meds through dobhoff.
--- NOTE | 2021-09-12 13:30 | NUR ---
Continued no changes with vent settings or gtt settings, Repositioned, patient withdrawls with care.
--- NOTE | 2021-09-12 17:30 | NUR ---
Patient remains intubated with 7.5 ET and 24 at teeth with vent settings of 16/400/70/10 and sats >93%. PICC lines continues to infusine Propofl at 65 mcg/kg/min, Levophed 2 mcg/min, Precedex 0.7 mcg/kg/hr, NS TKO and Fentanyl at 100 mcg/hr. 14Fr aiken had 900 gi colored urine ouput and no stool this shift. Dobhoff right nares continues to infuse Pivot 1.5 at 30 ml/hr and 100ml q4 water flushes. Moves with care and nocious stimuli.
[2021-09-13 02:44] LABS: BASOPHILS ABSOLUTE AUTO 0.05 K/mm3 (0.00-0.23); BASOPHILS PERCENT AUTO 0 % (0-2); EOSINOPHILS PERCENT AUTO 0 % (0-6); Hemoglobin 11.7 g/dL (11.5-16.0); IMMATURE GRAN ABSOLUTE AUTO 0.65 K/mm3 (0.00-0.10); IMMATURE GRAN PERCENT AUTO 3 % (0-1); LYMPHOCYTES ABSOLUTE AUTO 0.11 K/mm3 (0.84-5.20); LYMPHOCYTES PERCENT AUTO 1 % (21-46); MONOCYTES ABSOLUTE AUTO 0.78 K/mm3 (0.16-1.47); MONOCYTES PERCENT AUTO 3 % (4-13); Mean Corpuscular HGB 27.3 pg (26.0-34.0); Mean Corpuscular HGB Conc 32.5 g/dL (31.5-36.5); Mean Corpuscular Volume 84 fL (80-100); Mean Platelet Volume 9.1 fL (9.1-12.4); NEUTROPHILS PERCENT AUTO 93 % (41-73); Platelet Count 123 K/mm3 (150-400); RDW Coefficient Variation 13.4 % (11.7-14.2); RDW Standard Deviation 41.5 fL (35.1-46.3); Red Blood Cell Count 4.29 M/mm3 (3.80-5.20); White Blood Cell Count 23.89 K/mm3 (4.00-11.30)
[2021-09-13 02:59] LABS: Anion Gap 4 mmol/L (6-16); Blood Urea Nitrogen 33 mg/dL (8-24); Bun/Creatinine Ratio 60.1 (12.0-20.0); CO2, Blood 28 mmol/L (21-32); Calcium, Blood 7.6 mg/dL (8.5-10.1); Chloride, Blood 108 mmol/L (98-108); Creatinine, Blood 0.55 mg/dL (0.40-1.00); Glomerular Filtration Rate >60 (60-); Glucose, Blood 203 mg/dL (70-99); Potassium, Blood 4.4 mmol/L (3.5-5.5); Sodium, Blood 140 mmol/L (136-145)
--- NOTE | 2021-09-13 07:19 | NUR ---
Received report from Michelle BURNETT. Patient remains intubated with 7.5 ET and 24 cm at teeth with vent settings of Ac/VC 16/400/65/10 AND SATS 96%. She arouses slightly with nocious/pain stimuli. She has PICC line to [facility], dressing intact amd site WNL's and is infusing Propofol 65 mcg/kg/min, Precedex 1.4 mcg/kg/hr, Levophed 1 mcg/min, NS TKO, Fentanyl 100 mcg/hr. She has Dobhoff to right nares and is infusing Pivot 1.5 at 45 ml/hr and 100 ml q4 water flushes. She has 14 Fr Manriquez draining to gravity gi colored urine. Ice packs to groin and AC's for increased temp on Noc shift and tympanic 97.5.
--- NOTE | 2021-09-13 09:48 | NUR ---
No changes to gtt's or vent setting and sats >90%. Meds through dobhoff. remains well sedated with good volumes and breathing patterns. She continues to have moderate amounts of miner thick secretions from ET.
--- NOTE | 2021-09-13 11:30 | NUR ---
Repositioned patient and performed oral care. No changes to vent and or gtt's. Patient continues to rest with sedation and arouses to care or nocious/paiful stimuli. Normal temp post cooling measures.
--- NOTE | 2021-09-13 14:00 | NUR ---
Patients RR has been increaseing while sats up and down 80-90. Notified Dr Garner and made adjustments to vent AC/VC+ 18/400/70/12 and increased inspiration times. Medicated per OCT for anxiety. No changes to current gtt's as they already near max for patient. Still very sedated and extremities flaccid and pupils sluggish.
--- NOTE | 2021-09-13 15:16 | NUR ---
Rt went in room after speaking with Dr Garner and tried some other adjustments and RR 40-50. Current settings Spon mode, PS 13/80/12 and sats 80-low 90's. No adjustments to gtt's, still very sedated as extremities flaccid.
--- NOTE | 2021-09-13 18:35 | NUR ---
Patients RR would not decrease and we started Nimbex and titrated to 3-5-3 mcg/kg/min, current TO4 with dial at 7 and is 3 of 4. Stopped Precedex and started Versed gtt at 2mg/hr BIS sedation has been around 40-50. Vent settings are VC+ 12/400/80/12 and sats 94% and RR 12-18. PICC line is infusing NS TKO x2, Levophed at 8 mcg/min, Nimbex at 3 mcg/kg/min, Versed at 2 mg/hr, propofol at 65 mcg/kg/min, Fentanyl at 100 mcg/hr. Manriquez draining to gravity gi colored urine 700 ml.
[2021-09-13 18:43] LABS: PCO2 Arterial 76.7 mmHg (35-45); pH Blood Arterial 7.14 (7.35-7.45)
--- NOTE | 2021-09-13 20:00 | NUR ---
ASSUMED CARE OF PT AT 1915. REPORT RECEIVED. PT PRESENTS IN BED, INTUBATED. AC 20, Tv 400, FIO2 70% PEEP 12. SEE FLOWSHEET FOR DRIP RATES. WILL PROCEED TO TITRATE DRIPS NEEDED. PT MAINTAINING > 90 PERCENT SATURATION. HAS JUST RETURNED FROM CT FOR PE STUDY. DR SCHMITZ INDICATES A SMALL PE NOTED. LOVENOX DOSING ADJUSTED. WILL REVIEW CHART AND PLAN OF CARE FOR THIS PT.
--- NOTE | 2021-09-14 01:21 | NUR ---
PT MAINTAINS 3 ON TRAIN OF 4. NIMBEX FOR PARALYSIS. BIS MONITORING CONTINUES WHEREAS MAINTAINS 40-60 CONSISTENTLY. LUNGS VERY COARSE WITH INSPIRATORY WHEEZES. HAVE BEEN ABLE TO TITRATE LEVOPHED DOWN TO 13 MCG'S/MIN. PROPOFOL TO 45 MCG'S/KG/MIN. NIMBEX REMAINS AT 2. WILL CONTINUE TO MONITOR PT.
[2021-09-14 04:43] LABS: Hematocrit 38.5 % (33.0-51.0); Mean Corpuscular HGB 27.4 pg (26.0-34.0); Mean Corpuscular HGB Conc 31.2 g/dL (31.5-36.5); Mean Corpuscular Volume 88 fL (80-100); Mean Platelet Volume 10.4 fL (9.1-12.4); Platelet Count 163 K/mm3 (150-400); RDW Coefficient Variation 13.9 % (11.7-14.2); RDW Standard Deviation 45.1 fL (35.1-46.3); Red Blood Cell Count 4.38 M/mm3 (3.80-5.20); White Blood Cell Count 35.69 K/mm3 (4.00-11.30)
[2021-09-14 05:02] LABS: Anion Gap 6 mmol/L (6-16); Blood Urea Nitrogen 38 mg/dL (8-24); Bun/Creatinine Ratio 55.5 (12.0-20.0); CO2, Blood 26 mmol/L (21-32); Calcium, Blood 7.8 mg/dL (8.5-10.1); Chloride, Blood 105 mmol/L (98-108); Creatinine, Blood 0.69 mg/dL (0.40-1.00); Glomerular Filtration Rate >60 (60-); Glucose, Blood 252 mg/dL (70-99); Magnesium, Blood 2.6 mg/dL (1.6-2.4); Phosphorus, Blood 3.6 mg/dL (2.5-4.9); Potassium, Blood 4.6 mmol/L (3.5-5.5); Sodium, Blood 137 mmol/L (136-145)
[2021-09-14 05:28] LABS: BAND PERCENT MAN 23 % (0-8); BASOPHILS PERCENT MAN 0 % (0-2); EOSINOPHILS PERCENT MAN 0 % (0-6); LYMPHOCYTES ABSOLUTE MAN 0.35 K/mm3 (0.84-5.20); LYMPHOCYTES PERCENT MAN 1 % (21-46); MONOCYTES ABSOLUTE MAN 0.71 K/mm3 (0.16-1.47); MONOCYTES PERCENT MAN 2 % (4-13); MYELOCYTE ABSOLUTE MAN 0.35 K/mm3 (0.00-0.00); MYELOCYTE PERCENT MAN 1 % (0-0); NEUTROPHILS ABSOLUTE MAN 34.26 K/mm3 (1.96-9.15); SEG NEUTROPHILS PERCENT MAN 73 % (41-73); TOTAL CELLS COUNTED 100
--- NOTE | 2021-09-14 06:35 | NUR ---
HAVE BEEN ABLE TO WEAN LEVOPHED DOWN TO 8 MCG'S/MIN. NIMBEX REMAINS AT 2 MCG'S, VASOPRESSIN ON STANDBY. PLACED VERSED TO STANDBY. PT HAS BIS MONITOR THAT IS CONSISTENT 40-60 EXCEPT FOR APPROX AN HOUR THAT VALUES DROPPED TO LOWER 30'S. REDUCED PROPOFOL AND VERSED TO STANDBY. PT HAS INCREASE IN HEART RATE 140'S TO 150. RETURNED VERSED TO 1/HOUR AND PROPOFOL BACK TO 50 MCG'S/KG/MIN. WILL MONITOR. TRAIN OF FOUR MAINTAINS 3/4. WILL CONTINUE TO MONITOR PT, AND WILL REPORT OFF TO ONCOMING RN.
--- NOTE | 2021-09-14 13:09 | NUR ---
PT REMAINS INTUBATED AND SEDATED. PARALYTIC TURNED OFF AT NOON TO SEE PT'S RESPONSE AND SO FAR SHE IS BREATHING AT A RATE OF 20-22, SPO2 AROUND 94% WITH FIO2 60%. DR. RAMÍREZ AWARE OF THIS AND OK'D PARALYTIC TO STAY OFF LONG PT IS TOLERATING IT. LUNGS REMAINS COASE, SM AMT OF SPUTUM SUCTIONED OUT BY RT, DEAN/PINK. FIO2 TITRATED DOWN FROM 80% TO 60% THROUGHOUT THE MORNING. PT STILL REQUIRING PRESSORS. LEVOPHED INITIALLY HAD TO BE INCREASED HIGH 18MCG/MIN, BUT AFTER 1L BOLUS IT HAS BEEN TITRATED BACK DOWN TO 8MCG/MIN. VERSED ALSO TITRATED DOWN THIS MORNING BIS WAS 30. HR REMAINS SINUS TACH WITH RATE IN THE 120S. TRACE EDEMA. URINE OUTPUT WAS BARELY 30ML/HR THIS MORNING, BUT HAS IMPROVED SINCE BOLUS. URINE IS YELLOW AND CLOUDY. LACTULOSE STARTED IT HAS BEEN 12 DAYS SINCE PT HAD A BOWEL MOVEMENT RECORDED. ABDOMEN IS SOFT, HYPOACTIVE BOWEL TONES, TOELRATING TUBE FEED. NOON BG WAS 249, DR. RAMÍREZ INFORMED AND STARTED SLIDING SCALE. CONTINUING TO MONITOR.
--- NOTE | 2021-09-14 14:03 | NUR ---
PT'S RR IS IN THE UPPER 20S, LOW 30S, STACKING SOME BREATHS, SPO2 91% ON 60% FIO2, NIMBEX REMAINS OFF BUT BIS IS IN THE 70S. DISCUSSED THIS WITH DR. RAMÍREZ AND HE ADVISED INCREASING SEDATION FIRST TO HELP WITH REPSIRATORY STATUS. VERSED INCREASED AND WILL CONTINUE TO TITRATE NEEDED.
--- NOTE | 2021-09-14 15:57 | NUR ---
EVEN WITH SEDATION HIGH ENOUGH FOR A BIS OF 30 PT IS STACKING HER BREATHS MORE THAN 50% OF THE TIME. RT NOTIFIED AND TRIED DIFFERENT SETTINGS ON THE VENTILATOR, BUT ONLY SPONTANEOUS MODE WORKED. PT WAS BREATHING AT A RATE OF 12 WITH VOLUMES OF 600ML AT ONLY A PRESSURE OF 8. DR. RAMÍREZ CAME TO TO THE BEDSIDE AND DECIDED TO RESTART THE NIMBEX AND KEEP PT ON A MORE CONTROLLED SETTING FOR THE NEXT 24 HOURS. NIMBEX RESTARTED, PT SWITCHED BACK TO AC/VC. CONTINUE TO MONITOR.
--- NOTE | 2021-09-14 17:06 | NUR ---
SHIFT SUMMARY PT REMAINS INTUBATED AND SEDATED. PARALYTIC WAS OFF FOR ABOUT 4 HOURS TODAY, BUT SHE EVENTUALLY NEEDED IT BACK FOR VENTILATOR COMPLIANCE. HER LUNGS REMAIN COARSE. WHILE PARALYTIC WAS OFF SHE WAS ABLE TO COUGH AND PRODUCED A MODERATE AMT OF THICK, DEAN SPUTUM. SR CURRENTLY WITH RATE 98. PT HAS BEEN HIGH HR 130 TODAY. AFTER BOLUS THIS MORNING LEVOPHED HAS BEEN ABLE TO STAY DOWN AND IS CURRENTLY AT 6MCG/MIN. URINE REMAINS CLOUDY. TOELRATING TUBE FEED. NO BM YET, LACTULOSE ADDED TODAY. PT RECEIVED BATH TODAY. SKIN IS INTACT. BRUISING ON UPPER ARMS. CONTINUING TO MONITOR.
--- NOTE | 2021-09-14 19:33 | NUR ---
ASSUMED CARE OF PT AT 1915. REPORT RECEIVED. PT PRESENTS IN BED. INTUBATED. MAINTAINS SATURATIONS >90 PERCENT. WILL REVIEW CHART AND PLAN OF CARE FOR THIS PT.
--- NOTE | 2021-09-15 | NUR ---
PT HAS TWO BIG LOOSE STOOLS THIS NIGHT. OPTED TO PLACE [place]. RETURN OF SAME STOOL. PT MAINTAINS BIS MONITORING OF 40-60. HAVE TITRATED LEVOPHED AND VERSED TO MAINTAIN BLOOD PRESSURES WITH MAP > 65, AND BIS 40-60.
[2021-09-15 04:49] LABS: PCO2 Arterial 55.3 mmHg (35-45); pH Blood Arterial 7.28 (7.35-7.45)
[2021-09-15 05:13] LABS: BASOPHILS ABSOLUTE AUTO 0.03 K/mm3 (0.00-0.23); BASOPHILS PERCENT AUTO 0 % (0-2); EOSINOPHILS PERCENT AUTO 0 % (0-6); Hematocrit 33.3 % (33.0-51.0); Hemoglobin 10.4 g/dL (11.5-16.0); IMMATURE GRAN ABSOLUTE AUTO 0.42 K/mm3 (0.00-0.10); IMMATURE GRAN PERCENT AUTO 3 % (0-1); LYMPHOCYTES ABSOLUTE AUTO 0.21 K/mm3 (0.84-5.20); LYMPHOCYTES PERCENT AUTO 1 % (21-46); MONOCYTES ABSOLUTE AUTO 0.58 K/mm3 (0.16-1.47); MONOCYTES PERCENT AUTO 4 % (4-13); Mean Corpuscular HGB 27.6 pg (26.0-34.0); Mean Corpuscular HGB Conc 31.2 g/dL (31.5-36.5); Mean Corpuscular Volume 88 fL (80-100); Mean Platelet Volume 10.7 fL (9.1-12.4); NEUTROPHILS ABSOLUTE AUTO 15.13 K/mm3 (1.96-9.15); NEUTROPHILS PERCENT AUTO 92 % (41-73); Platelet Count 146 K/mm3 (150-400); RDW Coefficient Variation 14.6 % (11.7-14.2); RDW Standard Deviation 46.5 fL (35.1-46.3); Red Blood Cell Count 3.77 M/mm3 (3.80-5.20); White Blood Cell Count 16.37 K/mm3 (4.00-11.30)
[2021-09-15 05:25] LABS: Albumin, Blood 1.3 g/dL (3.4-5.0); Albumin/Globulin Ratio 0.3 (0.8-1.8); Bilirubin, Total 0.3 mg/dL (0.1-1.0); Bun/Creatinine Ratio 57.7 (12.0-20.0); Calcium, Blood 7.7 mg/dL (8.5-10.1); Creatinine, Blood 1.04 mg/dL (0.40-1.00); Globulin, Blood 4.2 g/dL (2.2-4.0); Magnesium, Blood 3.3 mg/dL (1.6-2.4); Phosphorus, Blood 3.2 mg/dL (2.5-4.9); Potassium, Blood 4.4 mmol/L (3.5-5.5); Total Protein, Blood 5.5 g/dL (6.4-8.2)
--- NOTE | 2021-09-15 06:30 | NUR ---
HAVE BEEN ABLE TO PLACE LEVOPHED TO STANDBY THIS MORNING. MAINTAINING MAP > 65. BIS CONTINUES TO MAINTAIN 40-60. HAVE RETURNED MUCH LESS DEAN SECRETIONS THIS NIGHT COMPARED TO PREVIOUS NIGHT. WILL CONTINUE TO MONITOR PT, AND WILL REPORT OFF TO ONCOMING RN.
--- NOTE | 2021-09-15 07:00 | NUR ---
ASSUMED CARE NOTE: ASSUMED CARE OF PT AT 0700. PT IS SEDATED WITH PROPOFOL AT 40MCG/KG/MIN, VERSED AT 0.5MG/HR, FENTANYL 50MCG/HR, NIMBEX TURNED OFF AT TOF 0/4. VENT SETTINGS ACVC RR20, tV 400, PEEP 12, FiO2 65% SPO2 ABOVE 90% THIN CLEAR SECRETIONS NOTED WITH ETT SUCTION, ORAL CARE PROVIDED. PT IS IN SINUS TACH WITH HR IN THE 120'S, BP STABLE, AFEBRILE. ACTIVE BOWEL TONES IN ALL QUADRANTS, RECTAL TUBE IN PLACE DRAINING TO GRAVITY, BROWN LIQUID STOOL NOTED. MEREDITH IN PLACE, PATENT AND DRAINING TO GRAVITY, CLOUDY YELLOW URINE NOTED. BED AT LOWEST LEVEL.
--- NOTE | 2021-09-15 09:19 | NUR ---
UPDATE: SPOKE TO REGARDING ELEVATED HR IN THE 140'S, ORDERS TO TURN SEDATION UP, CURRENT PROPOFOL RATE 50MCG/KG/MIN, VERSED AT 1MG/HR. CURRENT TOF 4/4 AT 6mA TO LEFT FACIAL NERVE, NIMBEX RESTARTED AT 2MCG/KG/MIN DUE TO VENT DYSSYNCHRONY.
--- NOTE | 2021-09-15 13:38 | NUR ---
UPDATE: AT APPROX 1115, PT'S HR ELEVATED INTO THE 150'S. CALLED , HE CAME TO BEDSIDE, ORDERS TO GIVE 2.5MG IV OF METOPROLOL, HR CAME DOWN TO 128, WAITIED 10 MINUTES ORDERED AND ADMINISTERED ANOTHER DOSE OF 2.5MG IV OF METOPROLOL, NO EFFECT TO HR. ORDERS TO ADNINISTER 1 LITER BOLUS OF LR, GIVEN, NO EFFECT TO HR. ORDERS TO START CARDIZEM DRIP, CURRENT RATE 5MG/HR, WILL CONTINUE TO TITRATE FOR TARGET HR LESS THAN 120.
[2021-09-15 16:02] LABS: Hematocrit 33.4 % (33.0-51.0); Hemoglobin 10.9 g/dL (11.5-16.0)
[2021-09-15 16:28] LABS: Magnesium, Blood 3.3 mg/dL (1.6-2.4)
[2021-09-15 16:35] LABS: Bun/Creatinine Ratio 49.2 (12.0-20.0); Calcium, Blood 6.7 mg/dL (8.5-10.1); Creatinine, Blood 1.24 mg/dL (0.40-1.00); Phosphorus, Blood 3.4 mg/dL (2.5-4.9); Potassium, Blood 4.2 mmol/L (3.5-5.5)
--- NOTE | 2021-09-15 18:19 | NUR ---
SHIFT SUMMARY: SEE PREVIOUS NOTES. PT REMAINS INTUBATED, SEDATED, PARALYZED. PT IS ON 45MCG/KG/MIN OF PROPOFOL, FENTANYL 50MCG/HR, VERSED 1MG/HR. CURRENT BIS 47. PT PARALYZED WITH NIMBEX TOF 2/4. VENT SETTINGS ACVC+ RR 20, tV 400, PEEP 12, FiO2 60. PT PRONED AT 1530, ORDERS TO PRONE 16 HRS. PT HAS BEEN IN ST WITH HR 112-120, CARDIZEM DRIP RUNNING AT 10MG/HR TO MAINTAIN HR BELOW 120. BP STABLE NO NEED TO RESTART PRESSORS AT THIS TIME. PT HAS BEEN HAVING MULTIPLE BOWEL MOVEMENT, SOME ARE SOFT, OTHER LIQUID, RECTAL TUBE PLACED AT 1800 STOOL APPEARED TO BE LIQUID, DRAINING TO GRAVITY. TUBE FEED RUNNING AT GOAL 45ML/HR. MEREDITH PATENT, DRAINING BIBIANA/CLOUDY URINE, 600ML OUTPUT THIS SHIFT. WILL CONTINUE TO MONITOR PT UNTIL REPORT IS GIVEN TO ONCOMING SHIFT.
[2021-09-16 04:09] LABS: Hematocrit 34.9 % (33.0-51.0); Hemoglobin 10.9 g/dL (11.5-16.0); Mean Corpuscular HGB 27.7 pg (26.0-34.0); Mean Corpuscular HGB Conc 31.2 g/dL (31.5-36.5); Mean Corpuscular Volume 89 fL (80-100); Mean Platelet Volume 10.5 fL (9.1-12.4); Platelet Count 158 K/mm3 (150-400); RDW Coefficient Variation 14.8 % (11.7-14.2); RDW Standard Deviation 48.4 fL (35.1-46.3); Red Blood Cell Count 3.93 M/mm3 (3.80-5.20); White Blood Cell Count 14.56 K/mm3 (4.00-11.30)
[2021-09-16 04:31] LABS: Albumin, Blood 1.3 g/dL (3.4-5.0); Albumin/Globulin Ratio 0.3 (0.8-1.8); Bilirubin, Total 0.5 mg/dL (0.1-1.0); Bun/Creatinine Ratio 54.5 (12.0-20.0); Creatinine, Blood 1.56 mg/dL (0.40-1.00); Globulin, Blood 4.3 g/dL (2.2-4.0); Phosphorus, Blood 4.5 mg/dL (2.5-4.9); Potassium, Blood 4.7 mmol/L (3.5-5.5); Total Protein, Blood 5.6 g/dL (6.4-8.2)
[2021-09-16 05:42] LABS: BAND PERCENT MAN 13 % (0-8); BASOPHILS PERCENT MAN 0 % (0-2); EOSINOPHILS PERCENT MAN 0 % (0-6); LYMPHOCYTES ABSOLUTE MAN 0.29 K/mm3 (0.84-5.20); LYMPHOCYTES PERCENT MAN 2 % (21-46); METAMYELOCYTE ABSOLUTE MAN 0.14 K/mm3 (0.00-0.00); METAMYELOCYTE PERCENT MAN 1 % (0-0); MONOCYTES ABSOLUTE MAN 0.72 K/mm3 (0.16-1.47); MONOCYTES PERCENT MAN 5 % (4-13); MYELOCYTE ABSOLUTE MAN 0.14 K/mm3 (0.00-0.00); MYELOCYTE PERCENT MAN 1 % (0-0); NEUTROPHILS ABSOLUTE MAN 13.24 K/mm3 (1.96-9.15); SEG NEUTROPHILS PERCENT MAN 78 % (41-73); TOTAL CELLS COUNTED 100
--- NOTE | 2021-09-16 06:42 | NUR ---
SHIFT SUMMARY: PATIENT REMAINS INTUBATED/SEDATED/PARALYZED. VENT SETTINGS UNCHANGED. SHE HAS DONE WELL BEING PRONED ALL NIGHT AND IS DUE TO BE SUPINE AT 0800. CARDIZEM DRIP WAS TITRATED OFF AROUND 2100 AND SHE HAS REMAINED IN 100-118'S. BP STABLE. LABS WNL
--- NOTE | 2021-09-16 09:06 | NUR ---
AM NOTE... ASSUMED CARE OF PT AT 0700. SHE IS INTUBATED, SEDATED AND PARALYZED, NIMBEX IS AT 1.5, PROPOFOL IS AT 45, VERSED GTT AT 1MG/HR, FENTANYL EXPLOSIVE OPERATOR BOMB AT 50MCG/HR. THE PT IS ON THE VENT AT AC/VC+ 20/400/12/60% L/S COARSE IN THE UPPERS DIM IN THE LOWERS. BT PRESENT AND HYPOACTIVE, ABD IS SOFT AND NONTENDER TO PALP. DOBHOFF IN PALCE RUNNING TUBE FEEDS AT 45MLS/HR. MEREDITH IN PLACE DRAINING TO GRAVITY, RECTAL TUBE IN PLACE RUNNING TO GRAVITY. THE PT'S BIS MONITOR IS CURRENTLY READING IN THE 40'S, A NEW STICKER PLACED. THE PS IS IN SINUS TACH IN THE 120'S-130'S. WILL CONTINUE TO MONITOR.
--- NOTE | 2021-09-16 18:52 | NUR ---
SHIFT SUMMARY.... NO ACUTE NEGATIVE CHANGES NOTED THIS SHIFT, THE PT'S BP HAS BEEN STABLE T/O THIS SHIFT THE PT'S HR HAS BEEN IN THE 120'S-140'S. THE PT WAS UNPRONED AT 0800, THE PT WAS PRONED AT 1800. NO CHANGES TO THE PT'S VENT SETTINGS THIS SHIFT. THE PT CONTINUES ON NIMBEX AT 1.5, PROPOFOL AT 45MCG, VERSED AT 1MG/HR, FENTANYL AERIAL SURVEY TECHNICIAN AT 50MCG/HR. BIS HAS BEEN IN THE HIGH 30'S-40'S. THE PT'S RECTAL TUBE HAS BEEN LEAKING MOST OF THIS SHIFT, THE PT'S STOOL HAS BEEN BROWN LIQUID. TUBE FEEDS CONTINUE ORDERED. THE PT'S MEREDITH IS PATENT AND DRAINING TO GRAVITY. THE PT'S URINARY OUTPUT THIS SHIFT WAS 175MLS, DR. RAMÍREZ NOTIFIED, NEW ORDERS FOR LR BOLUS AND LR AT 100MLS/HR. WILL CONTINUE TO MONITOR UNTIL REPORT IS GIVEN TO ONCOMING RN.
--- NOTE | 2021-09-16 19:30 | NUR ---
RECEIVED PATIENT FROM [facility]. GLADYS IS LYING PRONE, ON VENTILATOR AC 20, vT 400, PEEP 12, FIO2 50%. SHE HAS DOBBHOFF FOR FEEDING, PIVOT @45ML/HR. LEFT UPPER ARM WITH PICC LINE, INFUSING PROPOFOL @ 45MCG/KG, TKO NACL FOR UNASYN, FENTANYL @ 50MCG/HR, MIDAZOLAM @ 1MG/HR, NIMBEX @ 1.5MCG/KG. IV FLUID BOLUS LR W/O PER ORDERS STARTED. TOF @ 3/4, BIS @ MID 30S, MEREDITH TO GRAVITY DRAINAGE, RECTAL TUBE TO GRAVITY DRAINAGE. HEART RATE 130'S, BP STABLE, SATS 94%. ORAL CARE COMPLETED, PIETRO. LEGS REPOSITONED, CATH CARE DONE.
[2021-09-17 04:18] LABS: Hematocrit 34.5 % (33.0-51.0); Hemoglobin 10.8 g/dL (11.5-16.0); Mean Corpuscular HGB 27.5 pg (26.0-34.0); Mean Corpuscular HGB Conc 31.3 g/dL (31.5-36.5); Mean Corpuscular Volume 88 fL (80-100); Mean Platelet Volume 10.6 fL (9.1-12.4); NRBC ABSOLUTE 0.03 K/mm3 (0.00-0.02); NRBC Auto 0.2 /100 WBC (0.0-0.2); Platelet Count 180 K/mm3 (150-400); RDW Coefficient Variation 15.5 % (11.7-14.2); RDW Standard Deviation 50.4 fL (35.1-46.3); Red Blood Cell Count 3.93 M/mm3 (3.80-5.20); White Blood Cell Count 14.76 K/mm3 (4.00-11.30)
[2021-09-17 04:34] LABS: Albumin, Blood 1.3 g/dL (3.4-5.0); Albumin/Globulin Ratio 0.3 (0.8-1.8); Bilirubin, Total 0.4 mg/dL (0.1-1.0); Bun/Creatinine Ratio 50.7 (12.0-20.0); Calcium, Blood 8.1 mg/dL (8.5-10.1); Creatinine, Blood 2.29 mg/dL (0.40-1.00); Globulin, Blood 4.6 g/dL (2.2-4.0); Magnesium, Blood 4.2 mg/dL (1.6-2.4); Potassium, Blood 5.1 mmol/L (3.5-5.5); Total Protein, Blood 5.9 g/dL (6.4-8.2)
--- NOTE | 2021-09-17 05:54 | NUR ---
GLADYS CONTINUES ON THE VENTILATOR AC 20/vT 400/PEEP 12/FIO2 50%, PRONE POSITION WITH HEAD TURNED Q4 HOURS AND ROM, LEGS SHIFTED Q2. DOBBHOFF WITH TUBE FEEDING OF PIVOT 1.5 @45ML/HR. PICC LINE WITH PROPOFOL @ 45MCG/KG, NIMBEX @ 1.5MCG/KG, NS @ 10ML, LR @ 100ML, MIDAZOLAM @ 1MG/HR, FENTANYL AUTO HIKER @ 50MCG/ HR. MEREDITH WITH VERY MINIMAL OUTPUT <150, RECTAL TUBE WITH 100ML OUT. PATIENT IS 4 LITERS TO THE POSITIVE IN PAST 24 HOURS. BLOOD SUGARS ARE RUNNING 200-250. ORAL CARE DONE, WITH SECRETIONS OF DEAN W/RED STREAKS. PIETRO, TOF 3/4 @ 6-7, BIS 30-40 WHEN READING. SKIN VERY DRY, LOTIONED, RED UNDER HER ARMS, NYSTATIN APPLIED. HEART RATE REMAINS 130-150, SBP 130-170.
[2021-09-17 06:01] LABS: BAND PERCENT MAN 4 % (0-8); BASOPHILS PERCENT MAN 0 % (0-2); EOSINOPHILS PERCENT MAN 0 % (0-6); LYMPHOCYTES ABSOLUTE MAN 0.59 K/mm3 (0.84-5.20); LYMPHOCYTES PERCENT MAN 4 % (21-46); METAMYELOCYTE ABSOLUTE MAN 0.14 K/mm3 (0.00-0.00); METAMYELOCYTE PERCENT MAN 1 % (0-0); MONOCYTES ABSOLUTE MAN 0.44 K/mm3 (0.16-1.47); MONOCYTES PERCENT MAN 3 % (4-13); MYELOCYTE ABSOLUTE MAN 0.14 K/mm3 (0.00-0.00); MYELOCYTE PERCENT MAN 1 % (0-0); NEUTROPHILS ABSOLUTE MAN 13.43 K/mm3 (1.96-9.15); SEG NEUTROPHILS PERCENT MAN 87 % (41-73); TOTAL CELLS COUNTED 100
--- NOTE | 2021-09-17 09:15 | NUR ---
AM NOTE... ASSUMED CARE OF PT AT 0700, THE PT IS INTUBATED, SEDATED AND PARALYZED ON NIMBEX AT 1.5. THE PT'S PROPOFOL IS RUNNING AT 45MCG, VERSED GTT IS AT 1MG/HR AND FENTANYL SITE ACQUISITION MANAGER AT 50CMG/HR. THE PT'S BIS IS IN THE HIGH 20'S TO 30'S AT THIS TIME. THE PT IS IN SINUS TACH IN THE 120'S, BP STABLE AT THIS TIME. THE PT'S VENT SETTINGS ARE AC/VC+ 20/400/12/50% WITH O2 SATS >90%. L/S COARSE T/O WITH SCATTERED WHEEZES IN THE UPPER LOBES. THE PT IS CURRENTLY PRONED AND IS TO BE UNPRONED AT 1000. THE PT'S BT PRESENT AND HYPERACTIVE, ABD IS SOFT TO PALPATION. DOBHOFF IN PLACE RUNNING TUBE FEEDS PER ORDERS. RECTAL TUBE IN PLACE DRAINING LIQUID BROWN STOOL TO GRAVITY. MEREDITH IS PATENT AND DRAINING TO GRAVITY. WILL CONTINUE TO MONITOR.
--- NOTE | 2021-09-17 18:14 | NUR ---
SHIFT SUMMARY.... NO ACUTE NEGATIVE CHANGES NOTED THIS SHIFT. NO CHANGES TO THE PT'S VENT SETTINGS. THE PT'S VS HAVE BEEN STABLE T/O THIS SHIFT. THE PT'S NIMBEX GTT WAS TURNED OFF TO EVALUATE THE PT, THE PT BECAME DYSSYNCHRONOUS WITH THE VENT AND THE NIMBEX WAS TURNED BACK ON AT 1MCG/KG/MIN TOF IS 4/4 BUT THE PT IS VENT COMPLIANT AT THIS TIME. NO CHANGES TO THE PT'S OTHER DRIPS. THE PT'S RECTAL TUBE IS PATENT AND DRAINED 400MLS OF LIQUID BROWN STOOLS. THE PT'S MEREDITH IS PATENT AND DRAINED ONLY 150MLS OF CLOUDY PALE YELLOW URINE. 20 UNITS OF LANTUS BID WAS ADDED TO THE PT'S EMAR TO HELP IMPROVE CBGs. WILL CONTINUE TO MONITOR UNTIL REPORT IS GIVEN TO ONCOMING RN.
--- NOTE | 2021-09-17 18:49 | NUR ---
pt remains on ventilation will review prognosis tomorrow with polisher apprentice and family.
--- NOTE | 2021-09-17 19:30 | NUR ---
ASSUMED CARE OF PATIENT, SHE IS LYING SUPINE IN HER BED, VENTILATOR AC 20/ vT 400/PEEP 12/FIO2 50%. DOBBHOFF IN PLACE WITH PIVOT 1.5 @ 45ML/HR. NIMBEX @ 1MCG/KG, PROPOFOL @ 45MCG/KG, FENTANYL @ 50MCG/HR, MIDAZOLAM @ 1MG/HR. LR @ 100 ML/HR. HEART RATE 120'S, SBP 120-130, SATS MID 90'S. MEREDITH TO GRAVITY DRAINAGE WITH YELLOW, CLOUDY RETURN. RECTAL TUBE WITH BROWN LIQUID RETURN. SKIN DRY AND FLAKY, CRACKED.
--- NOTE | 2021-09-18 04:26 | NUR ---
DURING LINEN CHANGE AND 399 ASSESSMENT, IT WAS NOTED THAT PATIENT WAS NOW HAVING RED TINGED RETURN FROM THE MEREDITH CATHETER WELL FROM THE RECTAL TUBE, SHE SMELLED OF A LOWER GI BLEED WHILE TURNING WELL. SLIDE FASTENER CHAIN ASSEMBLER NOTIFIED. HER SETTINGS FOR HER VENT (AC 20/vT400/PEEP12/FIO2 50%) UNCHANGED, NO CHANGES IN HER FLUID DRIPS EITHER. CONTINUES ON PROPOFOL @ 45MCG/KG, NIMBEX @ 1MCG/KG, FENTANYL @ 50MCG/HR, MIDAZOLAM @ 1MG/HR, LR @ 100ML/ HR. NO BLOOD RETURN ON ET SUCTION OR ORAL CARE. WILL CONTINUE TO MONITOR.
[2021-09-18 04:29] LABS: Hematocrit 30.3 % (33.0-51.0); Hemoglobin 9.6 g/dL (11.5-16.0); Mean Corpuscular HGB 27.6 pg (26.0-34.0); Mean Corpuscular HGB Conc 31.7 g/dL (31.5-36.5); Mean Corpuscular Volume 87 fL (80-100); NRBC ABSOLUTE 0.02 K/mm3 (0.00-0.02); NRBC Auto 0.1 /100 WBC (0.0-0.2); Platelet Count 157 K/mm3 (150-400); RDW Coefficient Variation 15.9 % (11.7-14.2); Red Blood Cell Count 3.48 M/mm3 (3.80-5.20); White Blood Cell Count 14.04 K/mm3 (4.00-11.30)
[2021-09-18 04:43] LABS: Albumin, Blood 1.3 g/dL (3.4-5.0); Anion Gap 11 mmol/L (6-16); Blood Urea Nitrogen 142 mg/dL (8-24); Bun/Creatinine Ratio 51.8 (12.0-20.0); CO2, Blood 21 mmol/L (21-32); Calcium, Blood 7.8 mg/dL (8.5-10.1); Chloride, Blood 105 mmol/L (98-108); Creatinine, Blood 2.74 mg/dL (0.40-1.00); Glomerular Filtration Rate 18 (60-); Glucose, Blood 214 mg/dL (70-99); Phosphorus, Blood 5.5 mg/dL (2.5-4.9); Potassium, Blood 5.8 mmol/L (3.5-5.5); Sodium, Blood 137 mmol/L (136-145)
--- NOTE | 2021-09-18 05:50 | NUR ---
GLADYS CONTINUES ON THE VENTILATOR AC 20, vT 400, PEEP 12, FIO2 50%. SHE HAS MINIMAL SECRETIONS FROM ENDOTRACHEAL TUBE SUCTIONING THAT RETURNS WHITE/DEAN. SHE HAS PICC LINE IN SALAS NIMBEX @ 1MCG/KG, PROPOFOL @ 45MCG/KG, FENATNYL @ 50 MCG/HR, MIDAZOLAM @ 1MG/HR, LR @ 100ML/HR AND NS @ TKO. PIVOT 1.5 TUBE FEED VIA DOBHOFF @45ML/HR. ABDOMEN SOFT, ROUND WITH ACTIVE BOWEL SOUNDS, MEREDITH TO GRAVITY DRAINAGE WITH MINIMAL URINE OUTPUT (<150ML) THAT IS NOW RED TINGED. RECTAL TUBE TO GRAVITY NOW RETURNING BURGUNDY. FEET AND HANDS EDEMATOUS, SKIN FLAKY AND DRY DESPITE LOTION. BIS READS 30-40'S WHEN READING. TOF 3/4 @ 6.
[2021-09-18 05:52] LABS: BAND PERCENT MAN 3 % (0-8); BASOPHILS PERCENT MAN 0 % (0-2); EOSINOPHILS PERCENT MAN 0 % (0-6); LYMPHOCYTES ABSOLUTE MAN 0.56 K/mm3 (0.84-5.20); LYMPHOCYTES PERCENT MAN 4 % (21-46); MONOCYTES ABSOLUTE MAN 0.28 K/mm3 (0.16-1.47); MONOCYTES PERCENT MAN 2 % (4-13); MYELOCYTE ABSOLUTE MAN 0.14 K/mm3 (0.00-0.00); MYELOCYTE PERCENT MAN 1 % (0-0); NEUTROPHILS ABSOLUTE MAN 13.05 K/mm3 (1.96-9.15); SEG NEUTROPHILS PERCENT MAN 90 % (41-73); TOTAL CELLS COUNTED 100
--- NOTE | 2021-09-18 10:13 | NUR ---
AM NOTE.... ASSUMED CARE OF PT AT 0700, THE PT IS INTUBATED, SEDATED AND PARALYZED ON NIMBEX GTT AT 1MCG/KG/MIN. THE PT'S VENT SETTINGS HAVE NOT CHANGED, THEY ARE AC/VC:20/400/12/50% WITH O2 SATS 92-94%. L/S COARSE T/O. THE PT'S ET TUBE IS 7.5 AND 25 AT THE TEETH, DURING ORAL CARE THERE IS NOTED TO BE A SMALL AMOUNT OF BLOOD, ALSO DURING ET SUCTION THERE SPUTUM IS SCANT, THICK AND PINK TINGED. THE PT IS ON PROPOFOL AT 45MCG, FENTANYL CUSTOMER SOLUTIONS ARCHITECT AT 50MCG/HR AND VERSED GTT AT 1MG/HR. THE PT'S DOBHOFF IS SECURE AT 65, TUBE FEEDS RUNNING PER ORDERS AT 45MLS/HR. BT PRESENT AND HYPERACTIVE, RECTAL TUBE IN PLACE WITH LIQUID REDISH/BROWN STOOL. THE PT'S MEREDITH IS PATENT AND DRAINING VILLAR RED URINE TO GRAVITY. THE PT IS IN SIUNS TACH 110'S-120'S. BP IS STABLE. THE PT HAS 2+ EDEMA NOTED TO HER BUE AND BLE, THIS IS INCREASED FROM YESTERDAY'S ASSESSMENTS. WILL CONTINUE TO MONITOR.
[2021-09-18 11:18] LABS: International Normalized Ratio 0.92; Prothrombin Time Results 9.7 Sec (9.7-11.5)
[2021-09-18 15:12] LABS: Troponin I 0.04 ng/mL (0.000-0.040)
[2021-09-18 15:15] LABS: Bun/Creatinine Ratio 51.7 (12.0-20.0); Calcium, Blood 7.3 mg/dL (8.5-10.1); Creatinine, Blood 2.98 mg/dL (0.40-1.00); Potassium, Blood 6.1 mmol/L (3.5-5.5)
--- NOTE | 2021-09-18 16:44 | NUR ---
review of pt with intesivist potential for dialysis. will follow up pt kps score is 20% pt may not tolerate dialysis. Suggest comfort care.
--- NOTE | 2021-09-18 18:31 | NUR ---
SHIFT SUMMARY... AT APROX 1130 THE PT'S BP STARTED TO TREND DOWN, DR. GOTTLIEB NOTIFIED AND THE PT WAS STARTED ON LEVOPHED, THE LEVOPHED WAS TITRATED UP TO 14MCG/MIN, VASOPRESSIN WAS STARTED. AT APROX 1530 A TRIALYSIS CATH WAS PLACED TO THE PT'S RIGHT NECK. THE PT'S VENT SETTINGS WERE CHANGED SHORTLY AFTER THE CATH WAS PLACED, THE NEW SETTINGS ARE AC/VC: 20/400/10/50% WITH O2 SATS >90%. THE VERSED GTT WAS STOPPED. THE NIMBEX GTT WAS PLACED ON STAND BY TO SEE IF THE PT COULD TOLERATE THE VENT. THE PT'S RECTAL TUBE DRAINED 1500MLS OF LIQUID MAROON STOOLS, THE PT'S MEREDITH IS PATENT AND ONLY DRAINED 50MLS OF CLOUDY PINK TINGED URINE. THE PT'S TUBE FEEDS ARE RUNNING PER GOAL AT 45MLS/HR. WILL CONTINUE TO MONITOR UNTIL REPORT IS GIVEN TO ONCOMING RN.
--- NOTE | 2021-09-18 19:00 | NUR ---
ASSUMED CARE ASSUMED CARE OF PATIENT. REMAINS INTUBATED- AC/VC+ 20/400/PEEP10/[id number]%. RR 30s. SEDATED WITH PROPOFOL AT 50MCG/KG/MIN AND PRECEDEX AT 0.7MCG/KG/HR. FENTANYL GTT INFUSING AT 150MCG/HR SEDATION ADJUNCT. MONITOR SHOWS ST, RATE 120s. LEVOPHED AT 10MCG/MIN AT THIS TIME WITH GOAL TO KEEP MAP >65. DOBHOFF WITH PIVOT 1.5 AT GOAL RATE OF 45ML/HR. 30CC H20 FLUSHES Q4H. MEREDITH PATENT AND DRAINING TO GRAVITY- SCANT DRAINAGE. DAWNA PICC NOTED. RIJ TRIALYSIS CATHETER NOTED. REMAINS IN ENHANCED [place] ISOLATION FOR COVID-19. SEE SHIFT ASSESSMENT FOR FULL ASSESSMENT.
[2021-09-18 20:13] LABS: Hemoglobin 8.9 g/dL (11.5-16.0)
[2021-09-19 02:42] LABS: Hematocrit 27.9 % (33.0-51.0); Hemoglobin 8.8 g/dL (11.5-16.0); Mean Corpuscular HGB 27.6 pg (26.0-34.0); Mean Corpuscular HGB Conc 31.5 g/dL (31.5-36.5); Mean Corpuscular Volume 88 fL (80-100); NRBC ABSOLUTE 0.07 K/mm3 (0.00-0.02); NRBC Auto 0.5 /100 WBC (0.0-0.2); Platelet Count 186 K/mm3 (150-400); RDW Coefficient Variation 16.5 % (11.7-14.2); RDW Standard Deviation 53.1 fL (35.1-46.3); Red Blood Cell Count 3.19 M/mm3 (3.80-5.20); White Blood Cell Count 13.82 K/mm3 (4.00-11.30)
[2021-09-19 03:21] LABS: Albumin, Blood 1.2 g/dL (3.4-5.0); Anion Gap 12 mmol/L (6-16); Blood Urea Nitrogen 164 mg/dL (8-24); Bun/Creatinine Ratio 52.4 (12.0-20.0); CO2, Blood 19 mmol/L (21-32); Calcium, Blood 7.5 mg/dL (8.5-10.1); Chloride, Blood 108 mmol/L (98-108); Creatinine, Blood 3.13 mg/dL (0.40-1.00); Glomerular Filtration Rate 15 (60-); Glucose, Blood 225 mg/dL (70-99); Phosphorus, Blood 6.1 mg/dL (2.5-4.9); Potassium, Blood 6.1 mmol/L (3.5-5.5); Sodium, Blood 139 mmol/L (136-145); Triglycerides 446 mg/dL (30-160)
[2021-09-19 03:49] LABS: BAND PERCENT MAN 6 % (0-8); BASOPHILS PERCENT MAN 0 % (0-2); EOSINOPHILS PERCENT MAN 0 % (0-6); LYMPHOCYTES ABSOLUTE MAN 0.41 K/mm3 (0.84-5.20); LYMPHOCYTES PERCENT MAN 3 % (21-46); METAMYELOCYTE ABSOLUTE MAN 0.13 K/mm3 (0.00-0.00); METAMYELOCYTE PERCENT MAN 1 % (0-0); MONOCYTES ABSOLUTE MAN 0.27 K/mm3 (0.16-1.47); MONOCYTES PERCENT MAN 2 % (4-13); MYELOCYTE ABSOLUTE MAN 0.13 K/mm3 (0.00-0.00); MYELOCYTE PERCENT MAN 1 % (0-0); NEUTROPHILS ABSOLUTE MAN 12.85 K/mm3 (1.96-9.15); SEG NEUTROPHILS PERCENT MAN 87 % (41-73); TOTAL CELLS COUNTED 100
--- NOTE | 2021-09-19 08:20 | NUR ---
ASSUMED CARE REPORT FROM KEVIN BURNETT AT 0700. PT INTUBATED, SEDATED AND PARALYZED. VENT SETTINGS AC/VC+ 20/400/1.05/10/60%. LUNGS COARSE THROUGHOUT. NIMBEX PLACED ON STANDBY, TO4 12/04. RR 22-24. NO COUGH/GAG/SWALLOW REFLEX. PROPOFOL AND FENTANYL GTT FOR PAIN AND SEDATION, BIS 40'S. LEVO AND VASO GTT FOR MAP>65. ST, RATE 100-120'S. ABD ROUND, SOFT, BT X 4. RECTAL TUBE IN PLACE, LIQUID BROWN STOOL OUT. DOBHOFF AT 65 CM, TUBE FEEDS AT GOAL. MEREDITH PATENT, DRAINING SCANT YELLOW URINE TO GRAVITY. 2+ EDEMA TO EXT. TRIALYSIS CATH TO [place], DRESSING C/D/I. PLAN FOR DIALYSIS TODAY. PICC TO [facility], DRESSING C/D/I. WILL CONTINUE TO MONITOR.
[2021-09-19 15:58] LABS: Hematocrit 24.2 % (33.0-51.0); Hemoglobin 7.9 g/dL (11.5-16.0)
--- NOTE | 2021-09-19 17:19 | NUR ---
SHIFT SUMMARY PT REMAINS INTUBATED, SEDATED. VENT SETTINGS AC/VC 20/400/10/70%. LUNGS COARSE. MINIMAL SECRETIONS THROUGH ETT. NIMBEX D/C'D. PT TOLERATED WELL MOST OF SHIFT, OCCASIONAL DOUBLE STACKING ON VENT AT THIS TIME. MAINTAINING O2 SATS. GOAL WAS TO DECREASE PROPOFOL D/T TRIGLYCERIDES. D/T INCREASED HR AND VENT COMPLIANCE, INCREASED TO 50 MCG/KG/MIN, FENTANYL AT 150 MCG/HR. NO RESPONSE TO PAINFUL STIMULI. NO COUGH/GAG/SWALLOW REFLEX. HR INCREASED TO 130-140'S, PRN CARDIZEM GIVEN PT. LEVO AND VASO TITRATED OFF THIS SHIFT. DIALYSIS COMPLETE, 1L OFF. DVT STUDY +, PLAN FOR IVC FILTER TOMORROW. TUBE FEEDS AT GOAL. 450 ML MAROON OUT RECTAL TUBE, DRAINING TO GRAVITY. MEREDITH PATENT, 25 ML OF CLOUDY YELLOW URINE OUT. SKIN UNCHANGED. WILL CONTINUE TO MONITOR UNTIL REPORT TO ONCOMING NURSE.
--- NOTE | 2021-09-19 18:32 | NUR ---
UPDATE DISCUSSED c DR GOTTLIEB. PRECEDEX GTT, FENTANYL PRN, AND ROCURONIUM GIVEN. ALSO NOTIFIED RT FOR VENT ADJUSTMENTS. LEVO GTT RESTARTED FOR MAP>65. PLAN FOR REPEAT H&H AT 2200 AND 0500 c ORDERS TO TRANSFUSE IF HGB<7.
--- NOTE | 2021-09-19 19:45 | NUR ---
VASOPRESSIN/NIMBEX VASOPRESSIN STARTED AT THIS TIME TO ASSIST WITH MAINTAINING MAP >65. NIMBEX GTT STARTED AT 2MCG/KG/MIN FOR VENT COMPLIANCE. BIS 29-30 PRIOR TO STARTING NIMBEX.
[2021-09-19 21:54] LABS: Hematocrit 22.8 % (33.0-51.0); Hemoglobin 7.5 g/dL (11.5-16.0)
--- NOTE | 2021-09-20 00:33 | NUR ---
HYPOTENSION/CALL TO MD DR. CORRALES NOTIFIED OF INCREASE IN LEVOPHED TO 22MCG/MIN AND RESTART OF VASOPRESSIN GTT TO MAINTAIN MAP AT 65. DISCUSSED OPTION TO START EPINEPHRINE GTT ONCE LEVOPHED AT 30MCG/MIN. ORDER RECEIVED TO TRANSFUSE 1UNIT PRBC, WELL. ALSO NOTIFIED MD OF INCREASED IN FIO2 WHICH IS NOW AT 80%. DISCUSSED PRONING OF PATIENT, BUT WILL HOLD OFF ON PRONING UNTIL MORE HEMODYNAMICALLY STABLE.
[2021-09-20 05:58] LABS: Hematocrit 25.4 % (33.0-51.0); Hemoglobin 8.1 g/dL (11.5-16.0); Mean Corpuscular HGB 27.3 pg (26.0-34.0); Mean Corpuscular HGB Conc 31.9 g/dL (31.5-36.5); Mean Corpuscular Volume 86 fL (80-100); Mean Platelet Volume 11.1 fL (9.1-12.4); NRBC ABSOLUTE 0.02 K/mm3 (0.00-0.02); NRBC Auto 0.2 /100 WBC (0.0-0.2); Platelet Count 111 K/mm3 (150-400); RDW Coefficient Variation 15.9 % (11.7-14.2); RDW Standard Deviation 49.9 fL (35.1-46.3); Red Blood Cell Count 2.97 M/mm3 (3.80-5.20); White Blood Cell Count 12.12 K/mm3 (4.00-11.30)
--- NOTE | 2021-09-20 06:17 | NUR ---
SHIFT SUMMARY REMAINS INTUBATED- AC/VC+ 20/400/PEEP 10/FIO2 BETWEEN 80-100%. FIO2 NOW AT 85%. SEDATED WITH PROPOFOL NOW AT 25MCG/KG/MIN, PRECEDEX AT 0.7MCG/KG/HR, AND FENTANYL GTT 150MCG/HR. BIS 30s-40s T/O NOC. NIMBEX CONTINUES NOW AT 1.5MCG/KG/MIN- TO4 3/4. NO SPONTANEOUS MOVEMENT OF BREATHING NOTED. MONITOR SHOWS SR-ST, RATE 90s-100s. LEVOPHED INFUSED BETWEEN 10-22MCG/MIN- NOW AT 18MCG/MIN. VASOPRESSIN INFUSING AT 0.4UNITS/MIN. AFEBRILE. 1UNIT PRBC GIVEN. DOBHOFF WITH PIVOT 1.5 AT GOAL RATE OF 45CC/HR. 30CC H20 FLUSHES Q4H PER ORDER. MEREDITH PATENT WITH SCANT DRAINAGE. RECTAL TUBE IN PLACE- DRAINING DARK BROWN LIQUID STOOL. SALAS PICC AND RIJ TRIALYSIS CATHETER NOTED. WILL REPORT TO ONCOMING RN WHEN AVAILABLE.
[2021-09-20 06:22] LABS: Albumin, Blood 1.1 g/dL (3.4-5.0); Albumin/Globulin Ratio 0.3 (0.8-1.8); Bilirubin, Total 0.7 mg/dL (0.1-1.0); Bun/Creatinine Ratio 44.1 (12.0-20.0); Calcium, Blood 7.7 mg/dL (8.5-10.1); Creatinine, Blood 2.56 mg/dL (0.40-1.00); Phosphorus, Blood 6.3 mg/dL (2.5-4.9); Potassium, Blood 5.3 mmol/L (3.5-5.5); Total Protein, Blood 5.1 g/dL (6.4-8.2)
[2021-09-20 06:55] LABS: BAND PERCENT MAN 60 % (0-8); BASOPHILS PERCENT MAN 0 % (0-2); EOSINOPHILS PERCENT MAN 0 % (0-6); LYMPHOCYTES ABSOLUTE MAN 0.24 K/mm3 (0.84-5.20); LYMPHOCYTES PERCENT MAN 2 % (21-46); METAMYELOCYTE ABSOLUTE MAN 0.72 K/mm3 (0.00-0.00); METAMYELOCYTE PERCENT MAN 6 % (0-0); MONOCYTES ABSOLUTE MAN 0.12 K/mm3 (0.16-1.47); MONOCYTES PERCENT MAN 1 % (4-13); MYELOCYTE ABSOLUTE MAN 0.12 K/mm3 (0.00-0.00); MYELOCYTE PERCENT MAN 1 % (0-0); SEG NEUTROPHILS PERCENT MAN 30 % (41-73); TOTAL CELLS COUNTED 100
--- NOTE | 2021-09-20 12:35 | NUR ---
NARROW COMPLEX HEART RATE IN 160'S. DR GOTTLIEB NOTIFIED. LOPRESSOR 5MG IV ORDERED AND GIVEN.
[2021-09-20 14:54] LABS: Hematocrit 22.1 % (33.0-51.0); Hemoglobin 7.4 g/dL (11.5-16.0)
--- NOTE | 2021-09-20 17:31 | NUR ---
SHIFT SUMMARY PT REMAINS INTUBATED, SEDATED, AND PARALYZED. VENT SETTINGS AC 20, TV 400, PEEP 12, FIO2 90%. PT WITH SMALL AMOUNT OF ETT SECRETIONS THIS SHIFT. PICC TO SALAS REMAINS C/D/I. SEE FLOW SHEET FOR ALL GTT TITRATIONS THIS SHIFT. TRIALYSIS CATH TO [facility] C/D/I. PT RECIEVED DIALYSIS THIS SHIFT. DURING DIALYSIS PT WITH TWO EPISODES OF RAPID HEART RATE TO 180'S AND MED WITH IV LOPRESSOR WITH GOOD EFFECT. DOBHOFF REMAINS IN PLACE WITH TF INFUSING AT 50 ML/HR GOAL RATE AT THIS TIME. MEREDITH REMAINS IN PLACE WITH SCANT AMOUNT OF DARK [place] URINE OUTPUT NOTED. RECTAL TUBE REMAINS IN PLACE WITH LIQUID RUST COLORED OUTPUT NOTED. PT TAKEN TO [facility]RE PUNCHER FOR IVC FILTER PLACEMENT THIS AFTERNOON. RIGHT GROIN VENOUS ACCESS SITE STABLE WITH WINDOW DRESSING C/D/I. BIS MONITOR READINGS 40-60'S THIS SHIFT. TOF REMAINS 4/4. NO PURPOSEFUL MOVEMENTS NOTED. WILL CONTINUE TO MONITOR AND REPORT OFF TO ONCOMING RN.
--- NOTE | 2021-09-20 19:30 | NUR ---
ASSUMED CARE. PATIENT SEDATED/PARALYZED/INTUBATED. RECTAL TUBE WITH RUST BROWN LIQUID STOOL. CATHETER PATENT AND DRAINING SCANT AMOUNT OF URINE TEA COLOR, SEDIMENT. BIS RUNNING 30-40'S. SHE IS CURRENTLY ON FENTANYL DRIP, PROPOFOL, NIMBEX, LEVO, VASO, AND PRECEDEX DRIPS. ALL DRIPS VERIFIED. HELD VASO AT THIS TIME. WILL CONTINUE TO MONITOR.
--- NOTE | 2021-09-20 19:56 | NUR ---
WASTE FENTANYL FROM DRIP BAG OF 12.5CC. VERIFIED WITH GABBIE BURNETT.
[2021-09-20 20:22] LABS: Hematocrit 23.1 % (33.0-51.0); Hemoglobin 7.6 g/dL (11.5-16.0)
--- NOTE | 2021-09-20 21:50 | NUR ---
SPOKE TO DR. GOTTLIEB REGARDING DESATURATION TO 86-88% ON PEEP 12, FIO2 100%. NO CHANGE WHEN PLACED ON A PEEP OF 10. ON A PEEP OF 14 SHE DESATED FURTHER TO 94%. NEW ORDER RECEIVED.
--- NOTE | 2021-09-20 22:21 | NUR ---
SATURATIONS HAVE BEEN STAYING BETWEEN 85-86%. CALLED SON EMELIA FOR UPDATE. HE SAID HE PLANNED ON TALKING TO HIS SISTER ABOUT HIS MOTHER IN THE MORNING. INFORMED OF HIS MOTHERS CURRENT CONDITION AND SUGGESTED IF HE PLAN TO GET HERE SOON POSSIBLE, HIS ORGINAL PLAN WAS LATER THIS WEEK. HE SAID HE WILL TALK TO HIS SISTER IN THE MORNING AND LOOK FOR FLIGHTS SOON POSSIBLE. WILL CONTINUE TO KEEP HIM INFORMED.
--- NOTE | 2021-09-20 23:40 | NUR ---
WASTE FENTANYL OF 15CC FROM DRIP. VERIFIED WITH GABBIE BURNETT.
[2021-09-21 04:27] LABS: Hematocrit 21.5 % (33.0-51.0); Hemoglobin 7.2 g/dL (11.5-16.0); Mean Corpuscular HGB 28.3 pg (26.0-34.0); Mean Corpuscular HGB Conc 33.5 g/dL (31.5-36.5); Mean Corpuscular Volume 85 fL (80-100); Mean Platelet Volume 10.7 fL (9.1-12.4); Platelet Count 62 K/mm3 (150-400); RDW Coefficient Variation 16.3 % (11.7-14.2); RDW Standard Deviation 50.5 fL (35.1-46.3); Red Blood Cell Count 2.54 M/mm3 (3.80-5.20); White Blood Cell Count 3.13 K/mm3 (4.00-11.30)
[2021-09-21 04:49] LABS: Anion Gap 10 mmol/L (6-16); Blood Urea Nitrogen 74 mg/dL (8-24); Bun/Creatinine Ratio 38.5 (12.0-20.0); CO2, Blood 24 mmol/L (21-32); Calcium, Blood 7.6 mg/dL (8.5-10.1); Chloride, Blood 103 mmol/L (98-108); Creatinine, Blood 1.92 mg/dL (0.40-1.00); Glomerular Filtration Rate 26 (60-); Glucose, Blood 133 mg/dL (70-99); Phosphorus, Blood 6.1 mg/dL (2.5-4.9); Potassium, Blood 4.8 mmol/L (3.5-5.5); Sodium, Blood 137 mmol/L (136-145)
[2021-09-21 05:00] LABS: BAND PERCENT MAN 43 % (0-8); BASOPHILS PERCENT MAN 0 % (0-2); EOSINOPHILS PERCENT MAN 0 % (0-6); LYMPHOCYTES ABSOLUTE MAN 0.12 K/mm3 (0.84-5.20); LYMPHOCYTES PERCENT MAN 4 % (21-46); METAMYELOCYTE ABSOLUTE MAN 0.03 K/mm3 (0.00-0.00); METAMYELOCYTE PERCENT MAN 1 % (0-0); MONOCYTES ABSOLUTE MAN 0.12 K/mm3 (0.16-1.47); MONOCYTES PERCENT MAN 4 % (4-13); NEUTROPHILS ABSOLUTE MAN 2.84 K/mm3 (1.96-9.15); SEG NEUTROPHILS PERCENT MAN 48 % (41-73); TOTAL CELLS COUNTED 100
--- NOTE | 2021-09-21 05:42 | NUR ---
SHIFT SUMMARY: PATIENT SEDATED/PARALYZED/INTUBATED. BIS HAS BEEN CONSISTENT BETWEEN 38-42 MOST OF THE NIGHT. DID INCREASE HER PROPOFOL THIS AM TO 45MEQ/HR DUE TO BIS IN THE 90'S. NIMBEX CONTINUES AT 1.5MEQ/HR, FENTANYL AT 15OMEQ/HR. VASO WAS PLACED ON HOLD FOR SHORT PERIOD OF TIME BUT HAD TO BE RESTARTED. LEVO WAS INCREASED TO 6 BUT NOW IS AT 4. PRECEDEX CONTINUES AT 0.7. SHE HAD SOME DESATURATION AT START OF SHIFT TO 86-88%. RT ATTEMPTED TO INCREASE PEEP TO 14 RESULTING IN FURTHER DESATURATION TO 84%. PEEP OF 10 AND 12 RESULTED IN THE SAME RESULTS OF 87-88%. DR. GOTTLIEB INFORMED AND NEW ORDER TO KEEP PEEP AT 12, CALL IF SATS DROP BELOW 80% AND ARE CONSISTENT. SON EMELIA WAS CALLED FOR UPDATE AND ENCOURAGE THAT HE COME SEE HER, STATES HE WILL GET FLIGHT SOON HE CAN. SHE DID DO BETTER WHEN SHE WAS PLACED ON HER LEFT SIDE, SATS IMPROVED ON AVERAGE. RECTAL TUBE RUST COLOR LIQUID STOOL. VERY LITTLE OUTPUT OF CATHETER. BLOOD SUGARS NO COVERAGE TILL THIS AM. INCREASE IN SWELLING TO THE LUE, WITH NOTABLE BRUISING TO MEDIAL SIDE OF ARM. WILL REPORT TO DAYSHIFT/
--- NOTE | 2021-09-21 07:54 | NUR ---
ASSUMED CARE REPORT RECIEVED. PT IS INTUBATED, SEDATED, AND PARALYZED. VENT SETTINGS AC 20, TV 400, PEEP 12, FIO2 100%. PT SPO2 LOW TO MID 70'S. HR 120-130'S. SBP 70'S. LEVOPHED TITRATED UP TO 30 MCG/MIN. DR VICENTE NOTIFIED OF PT CONDITION. ORDERS RECIEVED FOR 500 ML BOLUS AND EPI GTT. PT WITH MOTTLING NOTED FROM KNEES DOWN. FINGERS AND TOES DUSKY. BIS 50'S, TOF 4/4. SEE FLOW SHEET FOR GTT TITRATIONS.
[2021-09-21 08:19] LABS: PCO2 Arterial 70 mmHg (35-45); PO2 Arterial 40 mmHg (80-100); pH Blood Arterial 7.11 (7.35-7.45)
--- NOTE | 2021-09-21 09:12 | NUR ---
Spiritual Care Referral. Pt. was pulled off life support. Pt. soon thereafter. No family present. Prayed a post-mortum blessing.
--- NOTE | 2021-09-21 09:18 | NUR ---
DECOMPENSATION / TIME OF AT 0830 PT WITH MULTIPE PROLONGED RUNS OF VTACH WITH HR 240'S AND SBP 60'S. DR VICENTE NOTIFED. EPI GTT STOPPED. ALL OTHER GTT'S UNCHANGED. PT THEN WITH IRREGULAR HR LEADING TO PEA, THEN ASYSTOLE. PT WITH ROSC WITH HR 40'S. PT SON EMELIA CALLED BY [facility] RN. NOTIFIED THAT IS IMMINENT. PER EMELIA FERNÁNDEZ STATED TO STOP ALL LIFE SUPPORT AT THAT TIME AND MAKE PT COMFORT CARE STATUS. ALL GTT'S DISCONTINUED AT THAT TIME. PT THEN WITH RAPID HR DECLINE TO ASYSTOLE. NO PULSES PALPABLE OR HEART TONES AUSCULTATED. TIME OF CALLED AT 0857. DR VICENTE AT BEDSIDE.
--- NOTE | 2021-09-21 09:23 | NUR ---
Received call from sales project engineer Stacey. Pt's condition rapidly declining. Family may benefit from discussion regarding comfort care. Called and spoke with Pt's son Jefferson. Provided update and gentle discussion regarding goals of care. Jefferson reports family is in agreement that Pt would not want her life prolonged at this point and is agreeable to withdraw care. Jefferson reports no preference in homes. Jefferson expresses appreciation and reports no other concerns at this time. Pt resting in bed and is intubated. Relayed family's wishes to LEX Stone. . This RN placed comfort care order per V/O from Dr Delgado. Received call from sales project engineer Stacey reporting Pt . Called son Jefferson and offered condelences. Jefferson expresses appreciation. Palliative Care will remain available. Received call from LEX Car
== END 2021-09-21 11:44 | DRG 870 ==
LOC: ER 09:57 → ERHOLD 12:21 → ICUW 12:21 → MEDS 12:21 → ICUW 09-04 08:28
PROVIDERS: Family Medicine; Internal Medicine; Internal Medicine Critical Care Medicine; Pharmacist; Student in an Organized Health Care Education/Training Program; ADMIT Internal Medicine
PROC: 8E0ZXY6 Isolation (ICD-10-PCS; 2021-09-02)
PROC: 5A09557 Assistance with Respiratory Ventilation, Greater than 96 Consecutive Hours, Continuous Positive Airway Pressure (ICD-10-PCS; 2021-09-06)
PROC: XW033E5 Introduction of Remdesivir Anti-infective into Peripheral Vein, Percutaneous Approach, New Technology Group 5 (ICD-10-PCS; 2021-09-06)
PROC: 5A1955Z Respiratory Ventilation, Greater than 96 Consecutive Hours (ICD-10-PCS; 2021-09-11)
PROC: 0BH17EZ Insertion of Endotracheal Airway into Trachea, Via Natural or Artificial Opening (ICD-10-PCS; 2021-09-11)
PROC: 3E033XZ Introduction of Vasopressor into Peripheral Vein, Percutaneous Approach (ICD-10-PCS; 2021-09-13)
PROC: 02HV33Z Insertion of Infusion Device into Superior Vena Cava, Percutaneous Approach (ICD-10-PCS; 2021-09-18)
PROC: 06H03DZ Insertion of Intraluminal Device into Inferior Vena Cava, Percutaneous Approach (ICD-10-PCS; principal; 2021-09-20)
DX: A41.89 Other specified sepsis (principal); R65.21 Severe sepsis with septic shock; J96.01 Acute respiratory failure with hypoxia; U07.1 COVID-19; I26.99 Other pulmonary embolism without acute cor pulmonale; J12.82 Pneumonia due to coronavirus disease 2019; J15.1 Pneumonia due to Pseudomonas; N17.9 Acute kidney failure, unspecified; E87.2 Acidosis; J45.901 Unspecified asthma with (acute) exacerbation; N39.0 Urinary tract infection, site not specified; K92.2 Gastrointestinal hemorrhage, unspecified; Z66 Do not resuscitate; K21.9 Gastro-esophageal reflux disease without esophagitis; Z87.891 Personal history of nicotine dependence; J45.909 Unspecified asthma, uncomplicated; M19.90 Unspecified osteoarthritis, unspecified site; Z79.899 Other long term (current) drug therapy; Z88.6 Allergy status to analgesic agent; Z91.040 Latex allergy status; G43.909 Migraine, unspecified, not intractable, without status migrainosus; Z88.8 Allergy status to other drugs, medicaments and biological substances; Z98.890 Other specified postprocedural states; Z91.010 Allergy to peanuts; E87.6 Hypokalemia; E87.5 Hyperkalemia; B96.20 Unspecified Escherichia coli [E. coli] as the cause of diseases classified elsewhere; R73.9 Hyperglycemia, unspecified
CPT/HCPCS: 0097U; 36415; 36430; 36556; 36569; 36600; 37191; 51702; 71045; 71260; 74174; 76705; 76937; 80048; 80053; 80069; 80074; 81001; 82330; 82728; 82803; 82947; 83735; 84100; 84478; 84484; 85014; 85018; 85025; 85027; 85379; 85610; 85730; 86140; 86317; 86480; 86850; 86900; 86901; 86923; 87040; 87070; 87077; 87086; 87186; 87205; 93306; 93970; 94003; 94640; 94660; 94760; 94762; 96361; 96374; 96375; 99285-25; A9270; C1751; C1752; C1769; C1880; C1894; C9113; C9399; J0171; J0248; J1100; J1644; J1650; J1815; J1956; J2060; J2250; J2405; J2543; J2704; J2920; J3010; J3480; J7030; J7040; J7050; J7060; J7120; P9016; Q9967